=== PATIENT | female | born 1935 | race Caucasian/White ===

== ENCOUNTER → 2016-08-19 | Outpatient (CLI) | payer BC ==
[~2016-08-19] MED LIST: CALCTAB5 PO; FLUO1CRE TOP; GEMF600T PO; GLIP-197 PO; LORA-741 PO; LOVA20TA4 PO; METF1000 PO
[2016-08-19 13:20] LABS: BLOOD UREA NITROGEN 28 mg/dl (7-18); BUN/CREATININE RATIO 25.5 (10-20); CALCIUM 9.3 mg/dl (8.5-10.1); CARBON DIOXIDE 25 mmol/L (21-32); CHLORIDE 106 mmol/L (98-107); CHOLESTEROL 168 mg/dl (0-200); GLUCOSE 138 mg/dl (70-99); POTASSIUM 4.5 mmol/L (3.5-5.1); SODIUM 141 mmol/L (136-145); TRIGLYCERIDES 157 mg/dl (0-150); VERY LOW DENSITY LIPOPROT CALC 31 mg/dl
[2016-08-19 13:24] LABS: CHOLESTEROL/HDL RATIO 3.6; HDL CHOLESTEROL 47 mg/dl
[2016-08-19 13:56] LABS: ESTIMATED AVERAGE GLUCOSE 163 mg/dl; HA1C FLAG Normal (Normal)
== END | disposition home or self-care (01) ==
LOC: C.LABSPEC 12:26
PROVIDERS: ATTEND Internal Medicine
DX: E78.5 Hyperlipidemia, unspecified (principal); I10 Essential (primary) hypertension; E11.65 Type 2 diabetes mellitus with hyperglycemia

== ENCOUNTER → 2016-08-27 | Outpatient (CLI) | payer BC | END | disposition home or self-care (01) | LOC: C.LABSPEC 12:15 | PROVIDERS: ATTEND Internal Medicine | DX: Z12.11 Encounter for screening for malignant neoplasm of colon (principal) ==

== ENCOUNTER → 2016-11-16 | Outpatient (CLI) | payer BC ==
--- NOTE | 2016-11-17 08:28 | MAMMOGRAPHY REPORT ---
BILATERAL DIGITAL SCREENING MAMMOGRAM WITH CAD: 11/16/2016 CLINICAL HISTORY: Routine screening. Patient has no complaints. TECHNIQUE: Bilateral CC and MLO views were obtained. Current study was also evaluated with a Comput er Aided Detection (CAD) system. COMPARISON: Comparison is made to exams dated: 11/14/2015 mammogram, 11/12/2014 mammogram, 11/09/2013 mammogram, 11/08/2012 mammogram, 11/08/2011 mammogram, and 11/05/2009 mammogram - [facility]. BREAST COMPOSITION: The tissue of both breasts is almost entirely fatty. FINDINGS: There are minimal vascular calcifications and benign-appearing microcalcifications in the breasts. No suspicious mass, architectural distortion or cluster of suspicious microcalcifications is seen. IMPRESSION: ACR BI-RADS CATEGORY 1: NEGATIVE There is no mammographic evidence of malignancy. A 1 year screening mammogram is recommended. The p atient will receive written notification of the results. Approximately 10% of breast cancers are not detected with mammography. A negative mammographic repor t should not delay biopsy if a clinically suggestive mass is present. Marielle Douglas M.D. ay/:11/16/2016 16:22:17 Valet Service Attendant: Zaida MYRICK(Brian)(Benjamin), [facility] letter sent: Normal 1/2 BI-RADS Code: ACR BI-RADS Category 1: Negative
== END | disposition home or self-care (01) ==
LOC: C.MAMM 11:08
PROVIDERS: ATTEND Internal Medicine
DX: Z12.31 Encounter for screening mammogram for malignant neoplasm of breast (principal)

== ENCOUNTER → 2016-12-20 | Outpatient (CLI) | payer BC ==
[2016-12-20 13:30] LABS: ESTIMATED AVERAGE GLUCOSE 166 mg/dl; HA1C FLAG Normal (Normal)
[2016-12-20 13:34] LABS: BLOOD UREA NITROGEN 32 mg/dl (7-18); BUN/CREATININE RATIO 28.8 (10-20); CALCIUM 9.2 mg/dl (8.5-10.1); CARBON DIOXIDE 26 mmol/L (21-32); CHLORIDE 106 mmol/L (98-107); GLUCOSE 148 mg/dl (70-99); POTASSIUM 4.4 mmol/L (3.5-5.1); SODIUM 142 mmol/L (136-145)
[2016-12-20 13:50] LABS: ALB/GLOB RATIO 1.1 (0.9-2); ALKALINE PHOSPHATASE 78 U/L (45-117); ALT/SGPT 23 U/L (12-78); AST/SGOT 16 U/L (15-37); CHOLESTEROL 150 mg/dl (0-200); CHOLESTEROL/HDL RATIO 3.9; HDL CHOLESTEROL 38 mg/dl; TRIGLYCERIDES 218 mg/dl (0-150); VERY LOW DENSITY LIPOPROT CALC 44 mg/dl
== END | disposition home or self-care (01) ==
LOC: C.LABSPEC 12:26
PROVIDERS: ATTEND Internal Medicine
DX: E78.5 Hyperlipidemia, unspecified (principal); E11.9 Type 2 diabetes mellitus without complications

== ENCOUNTER → 2017-04-21 | Outpatient (CLI) | payer BC ==
[2017-04-21 13:59] LABS: BLOOD UREA NITROGEN 28 mg/dl (7-18); BUN/CREATININE RATIO 27.6 (10-20); CALCIUM 9.2 mg/dl (8.5-10.1); CARBON DIOXIDE 25 mmol/L (21-32); CHLORIDE 104 mmol/L (98-107); CHOLESTEROL 137 mg/dl (0-200); GLUCOSE 168 mg/dl (70-99); POTASSIUM 4.5 mmol/L (3.5-5.1); SODIUM 137 mmol/L (136-145); TRIGLYCERIDES 191 mg/dl (0-150); VERY LOW DENSITY LIPOPROT CALC 38 mg/dl
[2017-04-21 14:03] LABS: CHOLESTEROL/HDL RATIO 3.5; HDL CHOLESTEROL 39 mg/dl
[2017-04-21 14:13] LABS: RATIO 88.2 mcg/mg (0-30.0)
== END | disposition home or self-care (01) ==
LOC: C.LABSPEC 12:12
PROVIDERS: ATTEND Internal Medicine
DX: E66.09 Other obesity due to excess calories (principal); E78.5 Hyperlipidemia, unspecified; E11.65 Type 2 diabetes mellitus with hyperglycemia

== ENCOUNTER → 2017-05-29 | Outpatient (CLI) | payer BC ==
--- NOTE | 2017-05-29 14:27 | DIAGNOSTIC IMAGING REPORT ---
SINUSES MIN 3 VIEWS ROUTINE HISTORY: 82 years-old Female FACIAL PAIN acute facial pain without reported trauma COMPARISON: Brain MR 05/26/2015 TECHNIQUE: 3 views of the paranasal sinuses FINDINGS: Degenerative changes are seen within the cervical spine. No acute facial bone fracture or dislocation identified. Mastoid air cells and imaged paranasal sinuses appear generally symmetrically aerated. Orbits appear intact. No opaque foreign body. IMPRESSION: No facial bone fracture or dislocation identified. The above report was generated using voice recognition software. It may contain grammatical, syntax or spelling errors. Electronically signed by: Luis Hernandez M.D. 05/29/2017 2:25 PM Dictated Date/Time: 05/29/2017 2:24 PM
== END | disposition home or self-care (01) ==
LOC: C.RAD 13:59
PROVIDERS: ATTEND Internal Medicine
DX: J34.89 Other specified disorders of nose and nasal sinuses (principal)

== ENCOUNTER → 2017-08-22 | Outpatient (CLI) | payer BC ==
[2017-08-22 13:09] LABS: HEMOGLOBIN A1C 7.2 % (4.5-5.6)
[2017-08-22 14:10] LABS: BLOOD UREA NITROGEN 31 mg/dl (7-18); CALCIUM 9.1 mg/dl (8.5-10.1); CARBON DIOXIDE 25 mmol/L (21-32); CREATININE 1.16 mg/dl (0.60-1.20); GLUCOSE 172 mg/dl (70-99); POTASSIUM 4.5 mmol/L (3.5-5.1); SODIUM 135 mmol/L (136-145)
[2017-08-22 14:13] LABS: CHOLESTEROL 152 mg/dl (0-200); LDL CHOLESTEROL (DIRECT) 94 mg/dl
== END | disposition home or self-care (01) ==
LOC: C.LABSPEC 12:21
PROVIDERS: ATTEND Internal Medicine
DX: Z00.01 Encounter for general adult medical examination with abnormal findings (principal); E78.5 Hyperlipidemia, unspecified; E11.65 Type 2 diabetes mellitus with hyperglycemia

== ENCOUNTER → 2017-11-17 | Outpatient (CLI) | payer BC ==
--- NOTE | 2017-11-18 14:19 | MAMMOGRAPHY REPORT ---
BILATERAL DIGITAL SCREENING MAMMOGRAM TOMOSYNTHESIS WITH CAD: 11/17/2017 CLINICAL HISTORY: Routine screening. Patient has no complaints. TECHNIQUE: Breast tomosynthesis in addition to standard 2D mammography was performed. Current study was also evaluated with a Computer Aided Detection (CAD) system. COMPARISON: Comparison is made to exams dated: 11/16/2016 mammogram, 11/14/2015 mammogram, 11/12/2014 ma mmogram, 11/09/2013 mammogram, 11/08/2012 mammogram, and 11/08/2011 mammogram - [facility]ter. BREAST COMPOSITION: The tissue of both breasts is almost entirely fatty. FINDINGS: No suspicious masses, calcifications, or areas of architectural distortion are noted in ei ther breast. There has been no significant interval change compared to prior exams. IMPRESSION: ACR BI-RADS CATEGORY 1: NEGATIVE There is no mammographic evidence of malignancy. A 1 year screening mammogram is recommended. The pa tient will receive written notification of the results. Approximately 10% of breast cancers are not detected with mammography. A negative mammographic report should not delay biopsy if a clinically suggestive mass is present. Urszula Alonso M.D. ah/:11/17/2017 13:18:14 Home Manager: Angelique MYRICK(Brian)(M), [facility] letter sent: Normal 1/2 BI-RADS Code: ACR BI-RADS Category 1: Negative
== END | disposition home or self-care (01) ==
LOC: C.MAMM 11:22
PROVIDERS: ATTEND Internal Medicine
DX: Z12.31 Encounter for screening mammogram for malignant neoplasm of breast (principal)

== ENCOUNTER → 2018-02-15 | Outpatient (CLI) | payer BC | END | disposition home or self-care (01) | LOC: C.LABSPEC 13:45 | PROVIDERS: ATTEND Internal Medicine | DX: N39.0 Urinary tract infection, site not specified (principal) ==

== ENCOUNTER 2022-01-18 11:34 | Inpatient (IN) ==
[2022-01-18] MEDS ORDERED: ALBUT/IPRATROP 3MG/0.5MG NEB 3 ML VIAL INH STA (12:28)
[2022-01-18] MEDS ORDERED: SODIUM CHLORIDE 0.9% 1000ML 1,000 ML IV ONE (12:28)
--- NOTE | 2022-01-18 12:33 | Emergency Department Note ---
Impression & Plan SOB (shortness of breath), Pneumonia, Tachypnea, Leukocytosis ED Provider Note NAME: TILA GARCIA AGE: 86 SEX: F : 1935 ARRIVES VIA: Ambulance INFORMANT: [Patient] ED PROVIDER(S): [Karl Bourne MD] CHIEF COMPLAINT: Short of breath HISTORY OF PRESENT ILLNESS: The patient is an 86-year-old female who has had a week of symptoms. She has a cough, low-grade fever and dyspnea. She feels worse with exertion. She has been quite tired and fatigued. No vomiting or diarrhea. No sore throat. She has not had abdominal pain. She has had some central chest pain with coughing. She took an at home COVID test that was negative. She went to [facility] today and her COVID test was negative. She was sent to the ER for further work-up. Of note, the patient did start a Z-Andres 3 days ago, this has not helped. She has no history of lung disease, she states that she is diabetic and she has noticed that her sugars have been in the 300 range lately. REVIEW OF SYSTEMS: See HPI for pertinent positives and negatives. A total of ten systems were reviewed and were otherwise negative. PMHx/PSHx: See Below SOCIAL HISTORY: See Below. PHYSICAL EXAM: GENERAL: Patient is in mild distress, seems short of breath. HEENT: No acute trauma, normocephalic atraumatic, mucous membranes moist, no nasal congestion, no scleral icterus. NECK: No stridor, no adenopathy, no meningismus, trachea is midline. LUNGS: Dry cough noted, scattered wheezes, increased respiratory rate, mild respiratory distress noted. HEART: Without murmurs gallops or rubs, regular rate and rhythm. ABDOMEN: Soft, nontender, bowel sounds positive, no peritonitis. EXTREMITIES: No cyanosis or edema, full range of motion of all the joints without pain or difficulty, no signs for acute trauma. NEUROLOGIC: Oriented x 3, no acute motor or sensory deficits, no focal weakness. SKIN: No rash, no jaundice, no diaphoresis. DIFFERENTIAL DIAGNOSIS: Reactive airway disease, pneumonia, COVID-19, influenza, pneumothorax, COPD, CHF, infection, cardiac ischemia, pulmonary embolism, bronchitis, musculoskeletal, gastrointestinal, as well as other pathologies. EMERGENCY DEPARTMENT COURSE/PROCEDURES: ECG: Indication was shortness of breath. The ECG shows a normal sinus rhythm with a rate of 88. There is no ST elevation, no PVCs. The QTc is 450. Continuous Cardiac Monitoring: An order was placed for continuous cardiac monitoring. The monitor shows a rate of 86 with normal sinus rhythm. MEDICAL DECISION MAKING: There is a slight leukocytosis, this could be consistent with infection. There is a normal hemoglobin and platelet count. No coagulopathy. No renal failure. Lactic acid level was elevated consistent with potential infection/sepsis. There was no worrisome liver enzyme elevation. Procalcitonin level was not elevated. ECG showed a normal sinus rhythm, no obvious ischemia. Cardiac enzyme testing x1 was elevated. This elevation could be consistent with mismat ch or potentially, cardiac injury. Respiratory bio fire testing was completely negative. Chest film showed potential patchy pneumonia. No pneumothorax or CHF. Chest CT did not show PE, multifocal patchy pneumonia was seen. The patient appeared short of breath on my evaluation. She was tachypneic. She received IV saline, 1.5 L. She was given IV doxycycline, IV ceftriaxone, a DuoNeb. The patient does not feel much better with the above treatment. She persists with shortness of breath and tachypnea. She is not hypoxic though. The patient has had symptoms for over a week. She has already been on antibiotics for 3 days. She is tachypneic, she has a leukocytosis, she has an elevated lactic acid with a patchy pneumonia on CT, I do think a hospital stay is warranted. I spoke with the patient and bilingual case manager. The on-call hospitalist was consulted. Past Med/Surg History Medical History Diabetes Diabetic neuropathy Dyslipidemia Panic disorder Surgical History History of cholecystectomy Family History (Updated 01/18/22 @ 17:47 by Josie Pena PA-C) Other Family history non-contributory Social History Smoking Status: Never smoker Hx Alcohol Use: No Hx Substance Use: No Preferred Language: Setswana Communication Ability: Effective Vehicle Window Tinter Required: No Beliefs That Will Affect Care: None Current Living Situation: Alone Other Information That Helps Us Care for You: No Feels Safe at Home: Yes Safety Concerns: Feels Safe At This Time Assistive Devices: Cane and Walker Allergies Allergies Allergy/AdvReac Type Severity Reaction Status Date / Time Penicillins Allergy Severe HIVES Verified 01/18/22 15:09 aspirin Allergy Intermediate RASH Verified 01/18/22 15:09 Sulfa (Sulfonamide Allergy Intermediate RASH Verified 01/18/22 15:09 Antibiotics) Home Meds Home Medications Medication Instructions Recorded Confirmed insulin aspar prot-insulin aspart See Rx Instructions .ROUTE .COMPLEX 12/21/21 01/18/22 100 unit/mL (70-30) subcutaneous pen (Novolog Mix 70-30FlexPen U-100) losartan 25 mg tablet 12.5 mg PO DAILY tab 12/21/21 01/18/22 cyanocobalamin (vitamin B-12) 1,000 mcg PO DAILY 01/18/22 01/18/22 1,000 mcg tablet (Vitamin B-12) Previous Rx's Medication Instructions Recorded gemfibrozil 600 mg tablet (Lopid) 600 mg PO BID #60 tab 12/21/21 lorazepam 0.5 mg tablet (Ativan) 0.5 mg PO DAILY PRN #30 tab 12/21/21 lovastatin 20 mg tablet 20 mg PO QPM #30 tab 12/21/21 metformin 1,000 mg tablet 1,000 mg PO BID #60 tab 12/21/21 Results & Data (ED) Vital Signs Vital Signs - 24 hr 01/18/22 11:55 01/18/22 12:00 01/18/22 12:55 Temperature 37.5 C Temperature Source Oral Pulse Rate 87 Pulse Rate [Right Finger] 86 Pulse Rhythm Regular Pulse Rhythm [Right Finger] Regular Pulse Strength Normal Pulse Strength [Right Finger] Normal Respiratory Rate 20 20 Respiratory Effort / Characteristics Non-Labored Spontaneous Spontaneous Respiratory Depth Normal Normal Respiratory Pattern Regular Regular Blood Pressure 122/86 Blood Pressure [Left Arm] 122/86 Blood Pressure Mean 98 Blood Pressure Mean [Left Arm] 98 Blood Pressure Position Lying Blood Pressure Position [Left Arm] Lying Pulse Oximetry 94 97 Oxygen Delivery Method Room Air Room Air Room Air Sepsis Recent Fever Within 48 Hours No Sepsis New/Unexplained Change in Mental Status No Sepsis Action Taken by Nursing No Action Required 01/18/22 14:00 Temperature Temperature Source Pulse Rate Pulse Rate [Right Finger] 85 Pulse Rhythm Pulse Rhythm [Right Finger] Regular Pulse Strength Pulse Strength [Right Finger] Normal Respiratory Rate 20 Respiratory Effort / Characteristics Spontaneous Respiratory Depth Normal Respiratory Pattern Regular Blood Pressure Blood Pressure [Left Arm] 132/69 Blood Pressure Mean Blood Pressure Mean [Left Arm] 90 Blood Pressure Position Blood Pressure Position [Left Arm] Lying Pulse Oximetry 97 Oxygen Delivery Method Room Air Sepsis Recent Fever Within 48 Hours Sepsis New/Unexplained Change in Mental Status Sepsis Action Taken by Jail Medications Current Medication List: was personally reviewed by me Laboratory Data Attestation: I reviewed the patient's lab results. Result diagrams: 01/18/22 12:50 01/18/22 12:50 Lab Results 01/18/22 01/18/22 01/18/22 Range/Units 12:50 12:50 12:50 WBC 11.45 H (4.8-10.8) K/uL RBC 4.62 (4.2-5.4) M/uL Hgb 13.4 (12.0-16.0) g/dL Hct 40.2 (37-47) % MCV 87.0 (80-100) fL MCH 29.0 (25-34) pg MCHC 33.3 (32-36) g/dL RDW Std Deviation 45.1 (36.4-46.3) fL RDW Coeff of Arsh 14.2 (11.5-14.5) % Plt Count 385 (130-400) K/uL MPV 10.3 (7.4-10.4) fL Immature Gran % (Auto) 0.3 % Neut % (Auto) 76.7 % Lymph % (Auto) 15.0 % Metcalfe % (Auto) 6.6 % Eos % (Auto) 1.1 % Baso % (Auto) 0.3 % Neut # (Auto) 8.77 H (1.4-6.5) K/uL Lymph # (Auto) 1.72 (1.2-3.4) K/uL Metcalfe # (Auto) 0.76 H (0.11-0.59) K/uL Eos # (Auto) 0.13 (0-0.5) K/uL Baso # (Auto) 0.04 (0-0.2) K/uL Immature Gran # (Auto) 0.03 H (0.00-0.02) K/uL PT 11.1 (9.0-12.0) Seconds INR 1.0 (0.9-1.1) APTT 26.1 (21.0-31.0) Seconds PTT Ratio 0.9 Sodium (136-145) mmol/L Potassium (3.5-5.1) mmol/L Chloride (98-107) mmol/L Carbon Dioxide (21-32) mmol/L Anion Gap (3-11) BUN (6-23) mg/dl Creatinine (0.6-1.2) mg/dl Est Cr Clr Drug Dosing ml/min Est GFR ( Amer) ml/min Est GFR (Non-Af Amer) ml/min BUN/Creatinine Ratio (10-20) Glucose (70-99(Fasting)) mg/dl Lactate 2.1 H* (0.4-2.0) mmol/L Calcium (8.5-10.1) mg/dl Magnesium (1.7-2.4) mg/dl Total Bilirubin (0.2-1.0) mg/dl AST (13-39) U/L ALT (7-52) U/L Alkaline Phosphatase (34-104) U/L Troponin I High Sens (0-14) pg/ml Total Protein (6.0-8.3) gm/dl Albumin (3.4-5.0) gm/dl Globulin (2.5-4.0) gm/dl Albumin/Globulin Ratio (0.9-2) Procalcitonin (0-0.5) ng/ml Adenovirus (PCR) (NotDetected) B. pertussis DNA (PCR) (NotDetected) B.parapertussis DNA PCR (NotDetected) C. pneumoniae DNA (PCR) (NotDetected) Coronavirus OC43 (PCR) (NotDetected) Coronavirus HKU1 (PCR) (NotDetected) Coronavirus 229E (PCR) (NotDetected) SARS-CoV-2 (PCR) (NotDetected) Coronavirus NL63 (PCR) (NotDetected) Human Metapneumovir PCR (NotDetected) Influenza Type A (PCR) (NotDetected) Influenza Type B (PCR) (NotDetected) M. pneumoniae (PCR) (NotDetected) Parainfluenza 1 (PCR) (NotDetected) Parainfluenza 2 (PCR) (NotDetected) Parainfluenza 3 (PCR) (NotDetected) Parainfluenza 4 (PCR) (NotDetected) RSV (PCR) (NotDetected) Entero/Rhino (PCR) (NotDetected) 01/18/22 01/18/22 01/18/22 Range/Units 12:50 12:50 12:50 WBC (4.8-10.8) K/uL RBC (4.2-5.4) M/uL Hgb (12.0-16.0) g/dL Hct (37-47) % MCV (80-100) fL MCH (25-34) pg MCHC (32-36) g/dL RDW Std Deviation (36.4-46.3) fL RDW Coeff of Arsh (11.5-14.5) % Plt Count (130-400) K/uL MPV (7.4-10.4) fL Immature Gran % (Auto) % Neut % (Auto) % Lymph % (Auto) % Metcalfe % (Auto) % Eos % (Auto) % Baso % (Auto) % Neut # (Auto) (1.4-6.5) K/uL Lymph # (Auto) (1.2-3.4) K/uL Metcalfe # (Auto) (0.11-0.59) K/uL Eos # (Auto) (0-0.5) K/uL Baso # (Auto) (0-0.2) K/uL Immature Gran # (Auto) (0.00-0.02) K/uL PT (9.0-12.0) Seconds INR (0.9-1.1) APTT (21.0-31.0) Seconds PTT Ratio Sodium 137 (136-145) mmol/L Potassium 4.0 (3.5-5.1) mmol/L Chloride 100 (98-107) mmol/L Carbon Dioxide 23 (21-32) mmol/L Anion Gap 14 H (3-11) BUN 24 H (6-23) mg/dl Creatinine 0.91 (0.6-1.2) mg/dl Est Cr Clr Drug Dosing 50.5 ml/min Est GFR ( Amer) 67.1 ml/min Est GFR (Non-Af Amer) 57.9 ml/min BUN/Creatinine Ratio 26.4 H (10-20) Glucose 158 H (70-99(Fasting)) mg/dl Lactate (0.4-2.0) mmol/L Calcium 10.1 (8.5-10.1) mg/dl Magnesium 1.9 (1.7-2.4) mg/dl Total Bilirubin 0.5 (0.2-1.0) mg/dl AST 11 L (13-39) U/L ALT 9 (7-52) U/L Alkaline Phosphatase 89 (34-104) U/L Troponin I High Sens 46.7 H (0-14) pg/ml Total Protein 8.2 (6.0-8.3) gm/dl Albumin 4.2 (3.4-5.0) gm/dl Globulin 4.0 (2.5-4.0) gm/dl Albumin/Globulin Ratio 1.1 (0.9-2) Procalcitonin 0.27 (0-0.5) ng/ml Adenovirus (PCR) Not Detected (NotDetected) B. pertussis DNA (PCR) Not Detected (NotDetected) B.parapertussis DNA PCR Not Detected (NotDetected) C. pneumoniae DNA (PCR) Not Detected (NotDetected) Coronavirus OC43 (PCR) Not Detected (NotDetected) Coronavirus HKU1 (PCR) Not Detected (NotDetected) Coronavirus 229E (PCR) Not Detected (NotDetected) SARS-CoV-2 (PCR) Not Detected (NotDetected) Coronavirus NL63 (PCR) Not Detected (NotDetected) Human Metapneumovir PCR Not Detected (NotDetected) Influenza Type A (PCR) Not Detected (NotDetected) Influenza Type B (PCR) Not Detected (NotDetected) M. pneumoniae (PCR) Not Detected (NotDetected) Parainfluenza 1 (PCR) Not Detected (NotDetected) Parainfluenza 2 (PCR) Not Detected (NotDetected) Parainfluenza 3 (PCR) Not Detected (NotDetected) Parainfluenza 4 (PCR) Not Detected (NotDetected) RSV (PCR) Not Detected (NotDetected) Entero/Rhino (PCR) Not Detected (NotDetected) 01/18/22 Range/Units 14:30 WBC (4.8-10.8) K/uL RBC (4.2-5.4) M/uL Hgb (12.0-16.0) g/dL Hct (37-47) % MCV (80-100) fL MCH (25-34) pg MCHC (32-36) g/dL RDW Std Deviation (36.4-46.3) fL RDW Coeff of Arsh (11.5-14.5) % Plt Count (130-400) K/uL MPV (7.4-10.4) fL Immature Gran % (Auto) % Neut % (Auto) % Lymph % (Auto) % Metcalfe % (Auto) % Eos % (Auto) % Baso % (Auto) % Neut # (Auto) (1.4-6.5) K/uL Lymph # (Auto) (1.2-3.4) K/uL Metcalfe # (Auto) (0.11-0.59) K/uL Eos # (Auto) (0-0.5) K/uL Baso # (Auto) (0-0.2) K/uL Immature Gran # (Auto) (0.00-0.02) K/uL PT (9.0-12.0) Seconds INR (0.9-1.1) APTT (21.0-31.0) Seconds PTT Ratio Sodium (136-145) mmol/L Potassium (3.5-5.1) mmol/L Chloride (98-107) mmol/L Carbon Dioxide (21-32) mmol/L Anion Gap (3-11) BUN (6-23) mg/dl Creatinine (0.6-1.2) mg/dl Est Cr Clr Drug Dosing ml/min Est GFR ( Amer) ml/min Est GFR (Non-Af Amer) ml/min BUN/Creatinine Ratio (10-20) Glucose (70-99(Fasting)) mg/dl Lactate 3.1 H* (0.4-2.0) mmol/L Calcium (8.5-10.1) mg/dl Magnesium (1.7-2.4) mg/dl Total Bilirubin (0.2-1.0) mg/dl AST (13-39) U/L ALT (7-52) U/L Alkaline Phosphatase (34-104) U/L Troponin I High Sens (0-14) pg/ml Total Protein (6.0-8.3) gm/dl Albumin (3.4-5.0) gm/dl Globulin (2.5-4.0) gm/dl Albumin/Globulin Ratio (0.9-2) Procalcitonin (0-0.5) ng/ml Adenovirus (PCR) (NotDetected) B. pertussis DNA (PCR) (NotDetected) B.parapertussis DNA PCR (NotDetected) C. pneumoniae DNA (PCR) (NotDetected) Coronavirus OC43 (PCR) (NotDetected) Coronavirus HKU1 (PCR) (NotDetected) Coronavirus 229E (PCR) (NotDetected) SARS-CoV-2 (PCR) (NotDetected) Coronavirus NL63 (PCR) (NotDetected) Human Metapneumovir PCR (NotDetected) Influenza Type A (PCR) (NotDetected) Influenza Type B (PCR) (NotDetected) M. pneumoniae (PCR) (NotDetected) Parainfluenza 1 (PCR) (NotDetected) Parainfluenza 2 (PCR) (NotDetected) Parainfluenza 3 (PCR) (NotDetected) Parainfluenza 4 (PCR) (NotDetected) RSV (PCR) (NotDetected) Entero/Rhino (PCR) (NotDetected) Administered Medications Discontinued Medications Albuterol (Albut/Ipratrop 3mg/0.5mg Neb 3 Ml Vial) 3 ml INH NOW STA Stop: 01/18/22 12:29 Last Admin: 01/18/22 13:28 Dose: 3 ml Documented by: [id number] Sodium Chloride (Nss 1000ml) 1,000 mls @ 999 mls/hr IV .Q1H1M ONE Stop: 01/18/22 13:28 Last Infusion: 01/18/22 14:25 Dose: 0 mls/hr Documented by: [id number] Admin: 01/18/22 13:28 Dose: 999 mls/hr Documented by: [id number] Ceftriaxone Sodium (Rocephin) 2,000 mg in 70 mls @ 140 mls/hr IV NOW STA Stop: 01/18/22 13:26 Last Infusion: 01/18/22 14:24 Dose: 0 mls/hr Documented by: [id number] Admin: 01/18/22 13:28 Dose: 140 mls/hr Documented by: [id number] Doxycycline Hyclate 100 mg/ (Dextrose) 110 mls @ 50 mls/hr IV NOW STA Stop: 01/18/22 17:33 Last Admin: 01/18/22 15:59 Dose: 50 mls/hr Documented by: [id number] Sodium Chloride (Nss 1000ml) 500 mls @ 999 mls/hr IV .Q31M ONE Stop: 01/18/22 16:00 Last Infusion: 01/18/22 17:07 Dose: 0 mls/hr Documented by: [id number] Admin: 01/18/22 16:00 Dose: 999 mls/hr Documented by: [id number] Ioversol (Optiray 320 125ml) 90 ml IV ONCE ONE Stop: 01/18/22 14:25 Last Admin: 01/18/22 14:25 Dose: 90 ml Documented by: [id number] Imaging Data Radiologist's Impression: Chest X-Ray 01/18/22 12:29 XR chest 1V portable HISTORY: 86 years-old Female SOB acute shortness of breath COMPARISON: None TECHNIQUE: Portable AP view of the chest FINDINGS: The cardiac silhouette is normal in size. Mild bilateral hilar prominence. No pneumothorax or large pleural effusion. Mild interstitial coarsening of the lung bases. Ill-defined 3.2 cm airspace opacity of the lateral right mid to upper lung abutting the fissure. Possible additional ill-defined right upper lobe airspace opacity. Degenerative changes of the shoulders and spine. IMPRESSION: 1. Right mid upper lung ill-defined opacities may represent developing pneumonia versus pulmonary nodules/lesions. Correlation with the ordered CTA chest study of same day recommended. 2. Mild interstitial coarsening of the lung bases, possibly chronic. ACT 112: Negative or not required by law. The above report was generated using voice recognition software. It may contain grammatical, syntax or spelling errors. Electronically signed by: Jasiel Hernandez M.D. 01/18/2022 12:52 PM Chest CTA 01/18/22 12:30 CT angio chest PE protocol CT DOSE: 403.99 mGy.cm HISTORY: 86 years-old Female with PE. Acute shortness of breath with cough and chest pain TECHNIQUE: Multiple CTA images of the chest were obtained after the intravenous administration of 90 ml Optiray. Coronal and sagittal MIPS were obtained from the axial data set and were submitted for review. All measurements were obtained according to NASCET criteria. A dose lowering technique was utilized adhering to the principles of ALARA. COMPARISON: Chest radiograph of same day FINDINGS: CTA: Mild cardiomegaly. There is no pericardial effusion. No thoracic aortic aneurysm or dissection. There is patency of the imaged great vessels. Unremarkable pulmonary artery. CT CHEST: Tiny subcentimeter hypodense thyroid nodules. Nonspecific mediastinal and hilar lymph nodes measure up to 9 mm. There is no pneumothorax, pleural effusion or overt pulmonary edema. Bronchial wall thickening is noted with bibasilar mucous plugging. Patchy multilobar bilateral groundglass and consolidative opacities. This includes a 1.6 cm area of nodular consolidation within the basal left lower lobe, 2.9 cm consolidation within the medial segment right middle lobe in a subpleural 4 cm consolidation within the right upper lobe. No acute process of the imaged upper abdomen. Probable cyst of the superior pole left kidney, 1.1 m. Hepatic steatosis. Mild right hemidiaphragmatic elevation. Unremarkable soft tissues. Degenerative changes of the shoulders and spine. IMPRESSION: 1. No pulmonary emboli identified. 2. Patchy multilobar bilateral groundglass and consolidative opacities are suggestive of multifocal pneumonia. Follow-up imaging after treatment course recommended to document resolution. 3. Bronchial wall thickening suggestive of bronchitis with mucous plugging. 4. Borderline enlarged mediastinal and hilar lymph nodes are likely reactive. ACT 112: Negative or not required by law. The above report was generated using voice recognition software. It may contain grammatical, syntax or spelling errors. Electronically signed by: Jasiel Hernandez M.D. 01/18/2022 3:14 PM Discharge Plan Visit Data Chief Complaint: Shortness of Breath/Dyspnea Stated Complaint: SOB, FEVER, NON PRODUCTIVE COUGH ED Provider: Karl Bourne Discharge Problem: SOB (shortness of breath), Pneumonia, Tachypnea, Leukocytosis Patient Disposition: Admitted As Inpatient Condition: Fair Discharge Instructions Interventions: ED Discharge Assessment Last Done: 01/18/22 17:38
--- NOTE | 2022-01-18 12:54 | XRay Report ---
XR chest 1V portable HISTORY: 86 years-old Female SOB acute shortness of breath COMPARISON: None TECHNIQUE: Portable AP view of the chest FINDINGS: The cardiac silhouette is normal in size. Mild bilateral hilar prominence. No pneumothorax or large p leural effusion. Mild interstitial coarsening of the lung bases. Ill-defined 3.2 cm airspace opacity of the lateral right mid to upper lung abutting the fissure. Possible additional ill-defined right up per lobe airspace opacity. Degenerative changes of the shoulders and spine. IMPRESSION: 1. Right mid upper lung ill-defined opacities may represent developing pneumonia versus pulmonary nod ules/lesions. Correlation with the ordered CTA chest study of same day recommended. 2. Mild interstitial coarsening of the lung bases, possibly chronic. ACT 112: Negative or not required by law. The above report was generated using voice recognition software. It may contain grammatical, syntax o r spelling errors. Electronically signed by: Jasiel Hernandez M.D. 01/18/2022 12:52 PM
[2022-01-18] MEDS ORDERED: cefTRIAXone SODIUM 2,000 MG/70 ML BAG IV STA (12:57)
[2022-01-18 13:13] LABS: Basophils # (auto) 0.04 K/uL (0-0.2); Basophils % (auto) 0.3 %; Eosinophils # (auto) 0.13 K/uL (0-0.5); Eosinophils % (auto) 1.1 %; Hematocrit (blood only) 40.2 % (37-47); Hemoglobin 13.4 g/dL (12.0-16.0); Immature Granulocytes # (auto) 0.03 K/uL (0.00-0.02); Immature Granulocytes % (auto) 0.3 %; Lymphocytes # (auto) 1.72 K/uL (1.2-3.4); Mean Corpuscular Hgb Conc 33.3 g/dL (32-36); Mean Platelet Volume 10.3 fL (7.4-10.4); Monocytes # (auto) 0.76 K/uL (0.11-0.59); Monocytes % (auto) 6.6 %; Neutrophils # (auto) 8.77 K/uL (1.4-6.5); Neutrophils % (auto) 76.7 %; Platelet Count 385 K/uL (130-400); RDW Coefficient of Variation 14.2 % (11.5-14.5); RDW Standard Deviation 45.1 fL (36.4-46.3); Red Blood Count 4.62 M/uL (4.2-5.4); White Blood Count 11.45 K/uL (4.8-10.8)
[2022-01-18 13:28] LABS: Albumin Globulin Ratio 1.1 (0.9-2); Albumin Level 4.2 gm/dl (3.4-5.0); BUN Creatinine Ratio 26.4 (10-20); Bilirubin,Total 0.5 mg/dl (0.2-1.0); Calcium 10.1 mg/dl (8.5-10.1); Creatinine Clr Calc Pharmacy 50.5 ml/min; Est GFR (African American) 67.1 ml/min; Est GFR (Non-African American) 57.9 ml/min; Magnesium 1.9 mg/dl (1.7-2.4); Total Protein 8.2 gm/dl (6.0-8.3)
[2022-01-18 13:31] LABS: Troponin I High Sensitivity 46.7 pg/ml (0-14)
[2022-01-18 13:37] LABS: Partial Thromboplastin Ratio 0.9; Partial Thromboplastin Time 26.1 Seconds (21.0-31.0); Prothrombin Time 11.1 Seconds (9.0-12.0)
[2022-01-18 14:07] LABS: Adenovirus PCR Not Detected (NotDetected); Bordetella parapertussis PCR Not Detected (NotDetected); Bordetella pertussis PCR Not Detected (NotDetected); Chlamydia pneumoniae PCR Not Detected (NotDetected); Coronavirus 229E PCR Not Detected (NotDetected); Coronavirus CoV-2 (COVID19)PCR Not Detected (NotDetected); Coronavirus HKU1 PCR Not Detected (NotDetected); Coronavirus NL63 PCR Not Detected (NotDetected); Coronavirus OC43PCR Not Detected (NotDetected); Human Metapneumovirus PCR Not Detected (NotDetected); Influenza A PCR Not Detected (NotDetected); Influenza B PCR Not Detected (NotDetected); Mycoplasma pneumoniae PCR Not Detected (NotDetected); Parainfluenza Virus 1 PCR Not Detected (NotDetected); Parainfluenza Virus 2 PCR Not Detected (NotDetected); Parainfluenza Virus 3 PCR Not Detected (NotDetected); Parainfluenza Virus 4 PCR Not Detected (NotDetected); Respiratory Syncytial VirusPCR Not Detected (NotDetected); Rhinovirus/Enterovirus PCR Not Detected (NotDetected)
[2022-01-18] MEDS ORDERED: OPTIRAY 320 125ml IV ONE (14:24)
--- NOTE | 2022-01-18 15:16 | CT Scan Report ---
CT angio chest PE protocol CT DOSE: 403.99 mGy.cm HISTORY: 86 years-old Female with PE. Acute shortness of breath with cough and chest pain TECHNIQUE: Multiple CTA images of the chest were obtained after the intravenous administration of 90 ml Optiray. Coronal and sagittal MIPS were obtained from the axial data set and were submitted for Qnovow. All measurements were obtained according to NASCET criteria. A dose lowering technique was ut ilized adhering to the principles of ALARA. COMPARISON: Chest radiograph of same day FINDINGS: CTA: Mild cardiomegaly. There is no pericardial effusion. No thoracic aortic aneurysm or dissection. There is patency of the imaged great vessels. Unremarkable pulmonary artery. CT CHEST: Tiny subcentimeter hypodense thyroid nodules. Nonspecific mediastinal and hilar lymph nodes measure u p to 9 mm. There is no pneumothorax, pleural effusion or overt pulmonary edema. Bronchial wall thicke bereket is noted with bibasilar mucous plugging. Patchy multilobar bilateral groundglass and consolidati ve opacities. This includes a 1.6 cm area of nodular consolidation within the basal left lower lobe, 2.9 cm consolidation within the medial segment right middle lobe in a subpleural 4 cm consolidation w ithin the right upper lobe. No acute process of the imaged upper abdomen. Probable cyst of the superior pole left kidney, 1.1 m. Hepatic steatosis. Mild right hemidiaphragmatic elevation. Unremarkable soft tissues. Degenerative ch anges of the shoulders and spine. IMPRESSION: 1. No pulmonary emboli identified. 2. Patchy multilobar bilateral groundglass and consolidative opacities are suggestive of multifocal p neumonia. Follow-up imaging after treatment course recommended to document resolution. 3. Bronchial wall thickening suggestive of bronchitis with mucous plugging. 4. Borderline enlarged mediastinal and hilar lymph nodes are likely reactive. ACT 112: Negative or not required by law. The above report was generated using voice recognition software. It may contain grammatical, syntax o r spelling errors. Electronically signed by: Jasiel Hernandez M.D. 01/18/2022 3:14 PM
[2022-01-18] MEDS ORDERED: DOXYCYCLINE HYCLATE 100 MG in DEXTROSE 5% 100 ML IV STA (15:22)
[2022-01-18] MEDS ORDERED: SODIUM CHLORIDE 0.9% 1000ML 500 ML IV ONE (15:30)
--- NOTE | 2022-01-18 16:33 | History & Physical Report ---
Date of Service January 18, 2022 Assessment & Plan (1) Pneumonia: Plan: - Day #7 of symptoms, failed outpatient treatment of Z-Andres, was started on ceftriaxone doxycycline and ED, will continue these for now. - WBC 11.45, lactate 3.1. Procalcitonin and repeat lactate pending. - Continue to follow lactate to 2 hours until <2.0, follow CBC, procalcitonin on morning labs. - Sputum and blood cultures ordered. - Supportive care with IVF, Tylenol, Mucinex. (2) Diabetes: Plan: - Hold home medications--> metformin 1000 mg twice daily and NovoLog 70/30, 55 units in the a.m. and 45 units in p.m. - Lantus 10 units twice daily with accucheks ACHS and SSI, can adjust as needed. - A1c checked in November 2021--> 7.5% (3) Elevated troponin: Plan: Mildly elevated troponin Likely myocardial demand ischemia Trend serial troponin No ischemic changes on ECG (4) Dyslipidemia: Plan: - Continue lovastatin 20 mg at night, gemfibrozil 600 mg twice daily. (5) Hypertension: Plan: - Continue losartan 12.5 mg daily. (6) Panic disorder: Plan: - Takes lorazepam 0.5 mg as needed, mostly for help falling asleep. Plan: - Admit to medicine w/ telemetry. - SCDs, Lovenox for VTE PPx. - DNR/DNI. History of Present Illness Chief Complaint: worsening shortness of breath and fevers x 7 days Primary Care Provider: Dante Garcia MD Anu Frances is an 86-year-old female with a past medical history significant for DM2 with neuropathy, dyslipidemia, hypertension, arthritis, and panic disorder who presents today for worsening shortness of breath and fatigue. 1 week ago, patient started experiencing central chest pain associated with a cough and fatigue, as well as low grade fevers. She saw her PCP, who started her on a Z-Andres for presumed bronchitis/pneumonia 3 days ago, however she is not been feeling any better, in fact feels worse. She continues to have chest pain associated with her cough, which is productive for some sputum, shortness of breath, as well as low grade fever and chills. In ED, VS are wnl and stable, however patient is tachypneic. Labs are significant for WBC 11.45 and lactate 3.1, hs trop 46.7. Respiratory biofire panel unremarkable. CXR showed right mid upper lung ill-defined opacities suspicious for pneumonia, Chest CT showed patchy multilobar bilateral groundglass and consolidative opacities suggestive of multifocal pneumonia. Allergies Allergy/AdvReac Type Severity Reaction Status Date / Time Penicillins Allergy Severe HIVES Verified 01/18/22 15:09 aspirin Allergy Intermediate RASH Verified 01/18/22 15:09 Sulfa (Sulfonamide Allergy Intermediate RASH Verified 01/18/22 15:09 Antibiotics) Home Medications Medication Instructions Recorded Confirmed Type gemfibrozil 600 mg tablet (Lopid) 600 mg PO BID #60 tab 12/21/21 01/18/22 Rx insulin aspar prot-insulin aspart See Rx Instructions .ROUTE .COMPLEX 12/21/21 01/18/22 History 100 unit/mL (70-30) subcutaneous pen (Novolog Mix 70-30FlexPen U-100) lorazepam 0.5 mg tablet (Ativan) 0.5 mg PO DAILY PRN #30 tab 12/21/21 01/18/22 Rx losartan 25 mg tablet 12.5 mg PO DAILY tab 12/21/21 01/18/22 History lovastatin 20 mg tablet 20 mg PO QPM #30 tab 12/21/21 01/18/22 Rx metformin 1,000 mg tablet 1,000 mg PO BID #60 tab 12/21/21 01/18/22 Rx cyanocobalamin (vitamin B-12) 1,000 mcg PO DAILY 01/18/22 01/18/22 History 1,000 mcg tablet (Vitamin B-12) Past Med/Surg History Medical History Diabetes Diabetic neuropathy Dyslipidemia Panic disorder Surgical History History of cholecystectomy Family History Other Family history non-contributory Social History Smoking Status: Never smoker Hx Alcohol Use: No Hx Substance Use: No Preferred Language: Latvian Communication Ability: Effective Perinatal Director Required: No Beliefs That Will Affect Care: None Current Living Situation: Alone Other Information That Helps Us Care for You: No Feels Safe at Home: Yes Safety Concerns: Feels Safe At This Time Assistive Devices: Cane and Walker Review of Systems Review of Systems: Constitutional: reports fever/chills, weakness, fatigue, and myalgias; no anorexia, night sweats Eyes: No diplopia, no worsening or blurred vision ENT: normal hearing, no trouble swallowing Respiratory: productive cough with shortness of breath with minimal activity Cardiovascular: chest pain associated with cough; no tightness or palpitations Abdomen: No pain, nausea, vomiting, diarrhea or constipation : Denies dysuria, hematuria, increased urgency/frequency, urinary retention Musculoskeletal: No joint pain, calf pain, swelling Neurologic: No weakness, numbness/tingling, or balance problems Psychiatric: No anxiety or depression Skin: No rash or itch Physical Exam Physical Exam: General: awake, alert, no apparent distress Head: Normocephalic, atraumatic ENT: PERRL, EOMI, no pharyngeal exudate, mucous membranes moist Chest: Clear to auscultation, on room air, no adventitious breath sounds Cardiac: Regular rate and rhythm, no murmur, no JVD, normal peripheral pulses, good capillary refill Abdominal: NABS x 4 quadrants, soft, nontender to palpation, no rebound, guarding or tenderness Extremities: Normal inspection, no peripheral edema or erythema, calfs nontender to palpation Psych: Normal mood and affect Neuro: AAO x 3, strength intact bilaterally and rated 5/5, no motor deficits, speech is clear, no peripheral sensory deficits Skin: no rash or erythema Results & Data Results & Data ([facility]) Vital Signs (Past 12 Hours) Vital Signs Temp Pulse Pulse Resp BP BP Pulse Ox 01/18/22 14:00 85 20 132/69 97 01/18/22 12:00 86 20 122/86 97 01/18/22 11:55 37.5 C 87 20 122/86 94 Laboratory Results Abnormal lab results 01/18/22 01/18/22 01/18/22 Range/Units 12:50 12:50 12:50 WBC 11.45 H (4.8-10.8) K/uL Neut # (Auto) 8.77 H (1.4-6.5) K/uL [place] # (Auto) 0.76 H (0.11-0.59) K/uL Immature Gran # (Auto) 0.03 H (0.00-0.02) K/uL Anion Gap 14 H (3-11) BUN 24 H (6-23) mg/dl BUN/Creatinine Ratio 26.4 H (10-20) Glucose 158 H (70-99(Fasting)) mg/dl Lactate 2.1 H* (0.4-2.0) mmol/L AST 11 L (13-39) U/L Troponin I High Sens 46.7 H (0-14) pg/ml 01/18/22 Range/Units 14:30 WBC (4.8-10.8) K/uL Neut # (Auto) (1.4-6.5) K/uL [place] # (Auto) (0.11-0.59) K/uL Immature Gran # (Auto) (0.00-0.02) K/uL Anion Gap (3-11) BUN (6-23) mg/dl BUN/Creatinine Ratio (10-20) Glucose (70-99(Fasting)) mg/dl Lactate 3.1 H* (0.4-2.0) mmol/L AST (13-39) U/L Troponin I High Sens (0-14) pg/ml Diagnostic Findings Chest X-Ray 01/18/22 12:29 XR chest 1V portable HISTORY: 86 years-old Female SOB acute shortness of breath COMPARISON: None TECHNIQUE: Portable AP view of the chest FINDINGS: The cardiac silhouette is normal in size. Mild bilateral hilar prominence. No pneumothorax or large pleural effusion. Mild interstitial coarsening of the lung bases. Ill-defined 3.2 cm airspace opacity of the lateral right mid to upper lung abutting the fissure. Possible additional ill-defined right upper lobe airspace opacity. Degenerative changes of the shoulders and spine. IMPRESSION: 1. Right mid upper lung ill-defined opacities may represent developing pneumonia versus pulmonary nodules/lesions. Correlation with the ordered CTA chest study of same day recommended. 2. Mild interstitial coarsening of the lung bases, possibly chronic. ACT 112: Negative or not required by law. The above report was generated using voice recognition software. It may contain grammatical, syntax or spelling errors. Electronically signed by: Jasiel Hernandez M.D. 01/18/2022 12:52 PM Chest CTA 01/18/22 12:30 CT angio chest PE protocol CT DOSE: 403.99 mGy.cm HISTORY: 86 years-old Female with PE. Acute shortness of breath with cough and chest pain TECHNIQUE: Multiple CTA images of the chest were obtained after the intravenous administration of 90 ml Optiray. Coronal and sagittal MIPS were obtained from the axial data set and were submitted for review. All measurements were obtained according to NASCET criteria. A dose lowering technique was utilized adhering to the principles of ALARA. COMPARISON: Chest radiograph of same day FINDINGS: CTA: Mild cardiomegaly. There is no pericardial effusion. No thoracic aortic aneurysm or dissection. There is patency of the imaged great vessels. Unremarkable pulmonary artery. CT CHEST: Tiny subcentimeter hypodense thyroid nodules. Nonspecific mediastinal and hilar lymph nodes measure up to 9 mm. There is no pneumothorax, pleural effusion or overt pulmonary edema. Bronchial wall thickening is noted with bibasilar mucous plugging. Patchy multilobar bilateral groundglass and consolidative opacities. This includes a 1.6 cm area of nodular consolidation within the basal left lower lobe, 2.9 cm consolidation within the medial segment right middle lobe in a subpleural 4 cm consolidation within the right upper lobe. No acute process of the imaged upper abdomen. Probable cyst of the superior pole left kidney, 1.1 m. Hepatic steatosis. Mild right hemidiaphragmatic elevation. Unremarkable soft tissues. Degenerative changes of the shoulders and spine. IMPRESSION: 1. No pulmonary emboli identified. 2. Patchy multilobar bilateral groundglass and consolidative opacities are suggestive of multifocal pneumonia. Follow-up imaging after treatment course recommended to document resolution. 3. Bronchial wall thickening suggestive of bronchitis with mucous plugging. 4. Borderline enlarged mediastinal and hilar lymph nodes are likely reactive. ACT 112: Negative or not required by law. The above report was generated using voice recognition software. It may contain grammatical, syntax or spelling errors. Electronically signed by: Jasiel Hernandez M.D. 01/18/2022 3:14 PM ECG Additional Comments: Normal sinus rhythm Normal ECG When compared with ECG of 28-MAY-2004 20:56, No significant change was found. Code Status & VTE Plan Code Status DNR/DNI. VTE Prophylaxis Plan VTE Prophylaxis will be ordered: Yes Supervising Physician Co-Signing Physician Notes PA Supervision Note: I personally saw and examined the patient. I verified all calderon points and agree with CALLI Pena with the following exceptions and/or additions: S-this patient is an 86-year-old female who presents with cough and low-grade fevers x7 days, failing outpatient azithromycin treatment from her PCP. Found to have multifocal pneumonia on CT of the chest. With mildly elevated WBC count, rigors when I saw her. Elevated lactate. Blood pressures high and pulse rate high. Pulse ox still fairly within normal limits. History and ROS reviewed otherwise as above O- Vitals reviewed Gen: AAOx3, NAD, having rigors HEENT: Anicteric sclerae, EOMI CV: RRR no mgr nl S1S2 Pulm: Positive crackles auscultated in right lower lung field, otherwise no wheezes or rhonchi, breathing unlabored Abd: +BS soft NT ND no masses or hernias Ext: No edema, 2+ DP pulses Skin: No rashes, warm/dry Neuro: Full strength throughout Labs, Rads, and ECG reviewed A/A-28-ohto-old female here with multifocal pneumonia, likely sepsis POA if spikes fever while here. With lactic acidosis now improving with IV fluids -Continue antibiotics, IV fluids, follow blood and sputum cultures as above Supplemental O2 as needed to keep pulse ox greater than 90% Follow CBC, BMP in the morning Follow lactate Elevated troponin-likely myocardial demand ischemia PG Care Time/CCT Total # of Minutes Spent Total Time Spent with Patient: Total time spent is greater than 50% in coordination of care (as documented) at patient's floor/unit and/or counseling patient: Coding Level of Care Code 04171 Initial Inpt Care Lvl 2 Diagnoses Pneumonia J18.9 Diabetes E11.9 Panic disorder F41.0 Dyslipidemia E78.5 Hypertension I10 Elevated troponin R77.8
[2022-01-18] MEDS ORDERED: DEXTROSE 50% 50 ML SYRINGE IV PRN (18:28)
[2022-01-18] MEDS ORDERED: ACETAMINOPHEN 325 MG TAB PO PRN (18:28)
[2022-01-18] MEDS ORDERED: NORMOSOL-R 1,000 ML IV SCH (18:28)
[2022-01-18] MEDS ORDERED: GLUCOSE 10 TAB/TUBE PO PRN (18:28)
[2022-01-18] MEDS ORDERED: GLUCOSE 40% GEL 15 GM TUBE PO PRN (18:28)
[2022-01-18] MEDS ORDERED: ONDANSETRON INJ 2 MG/ML 2 ML VIAL IV PRN (18:28)
[2022-01-18] MEDS ORDERED: POLYETHYLENE (MIRALAX) 17 GM PACK PO PRN (18:28)
[2022-01-18] MEDS ORDERED: GLUCAGON FOR INJ 1 MG VIAL SQ PRN (18:28)
[2022-01-18] MEDS ORDERED: CARBOHYDRATES FOR HYPOGLYCEMIA PO PRN (18:28)
[2022-01-18] MEDS: ENOXAPARIN INJ 30 MG/0.3 ML SYR SQ SCH (20:35)
[2022-01-18] MEDS: gemfibroziL 600 MG TAB PO SCH (20:37)
[2022-01-18] MEDS: INSULIN ASPART PER UNIT SC SCH (20:38)
[2022-01-18] MEDS: LANTUS PER UNIT CHARGE SQ SCH (20:38)
[2022-01-18] MEDS: LOVASTATIN 20 MG TAB PO SCH (20:39)
[2022-01-18] MEDS: LORazepam 0.5 MG TAB PO PRN ×2 (20:44→22:22)
[2022-01-19] MEDS: DOXYCYCLINE HYCLATE 100 MG in DEXTROSE 5% 100 ML IV SCH ×2 (04:57→16:37)
[2022-01-19 05:57] LABS: Basophils # (auto) 0.05 K/uL (0-0.2); Basophils % (auto) 0.5 %; Eosinophils # (auto) 0.13 K/uL (0-0.5); Eosinophils % (auto) 1.3 %; Hematocrit (blood only) 34.1 % (37-47); Hemoglobin 11.2 g/dL (12.0-16.0); Immature Granulocytes # (auto) 0.04 K/uL (0.00-0.02); Immature Granulocytes % (auto) 0.4 %; Lymphocytes % (auto) 15.4 %; Mean Corpuscular Hemoglobin 29.2 pg (25-34); Mean Corpuscular Hgb Conc 32.8 g/dL (32-36); Mean Corpuscular Volume 88.8 fL (80-100); Mean Platelet Volume 10.1 fL (7.4-10.4); Monocytes # (auto) 0.75 K/uL (0.11-0.59); Monocytes % (auto) 7.2 %; Neutrophils % (auto) 75.2 %; Platelet Count 328 K/uL (130-400); RDW Coefficient of Variation 14.5 % (11.5-14.5); Red Blood Count 3.84 M/uL (4.2-5.4); White Blood Count 10.37 K/uL (4.8-10.8)
[2022-01-19 06:38] LABS: BUN Creatinine Ratio 20.4 (10-20); Calcium 8.5 mg/dl (8.5-10.1); Creatinine Clr Calc Pharmacy 49.3 ml/min; Est GFR (African American) 65.4 ml/min; Est GFR (Non-African American) 56.4 ml/min
--- NOTE | 2022-01-19 07:17 | Hospitalist Progress Note ---
Date of Service January 19, 2022 Assessment & Plan (1) Pneumonia: Plan: - Day #7 of symptoms, failed outpatient treatment of Z-Andres, was started on ceftriaxone doxycycline and ED, will continue these for now. - Sputum and blood cultures ordered. - Supportive care with IVF, Tylenol, Mucinex. -given clinical location, and multilobular appearance on CT if not improving consider pulm eval and have post discharge imaging to assure resolution in future (2) Diabetes: Plan: - Hold home medications--> metformin 1000 mg twice daily and NovoLog 70/30, 55 units in the a.m. and 45 units in p.m. - Lantus 10 units twice daily with accucheks ACHS and SSI, can adjust as needed. adjusted ssi 01/19/22 - A1c checked in November 2021--> 7.5% (3) Elevated troponin: Plan: Mildly elevated troponin Likely myocardial demand ischemia Trend serial troponin without significant change No ischemic changes on ECG (4) Dyslipidemia: Plan: - Continue lovastatin 20 mg at night, gemfibrozil 600 mg twice daily. (5) Hypertension: Plan: - Continue losartan 12.5 mg daily. (6) Panic disorder: Plan: - Takes lorazepam 0.5 mg as needed, mostly for help falling asleep. Plan: . - SCDs, Lovenox for VTE PPx. - DNR/DNI. Admission and Anticipated Discharge Date Admission Date: January 18, 2022 Subjective this pt is bothered by a non productive cough, she is weak and tired Review of Systems Review of Systems: Moderate distress and fatigue no headache, no visual changes no speech or swallowing issues no chest pain, pressure or palpitations pt has shortness of breath and cough, non productive, has paryxysms no abdominal pain, nausea or vomiting, diarrhea or constipation no dysuria, hematuria or frequency no focal joint pain or swelling no back pain, CVA tenderness or radicular pain no bruising, bleeding or rashes no focal signs of weakness or numbness or altered sensation no complaints of anxiety or depression.. Physical Exam Physical Exam: The patient appeared well nourished and normally developed. Vital signs as documented. Head exam is normocephalic atraumatic Neck is without JVD, thyromegaly, or carotid bruits. Lungs are with bibasilar rales R>L Cardiac exam, Rhythm is regular.. No murmurs, rubs or gallops. Abdominal exam reveals normal bowel sounds, soft non tender, no masses Extremities are nonedematous and both pedal pulses are present Neurologic exam is alert and oriented, no focal loss of strength or sensation Skin is without bruises or rashes Psychologically is without concerns for anxiety or depression.. Results & Data Results & Data ([facility]) Vital Signs (Past 12 Hours) Vital Signs Temp Pulse Pulse Resp BP BP Pulse Ox 01/19/22 03:38 97.7 F 91 H 18 128/70 90 01/18/22 23:13 99.0 F 88 20 111/71 92 01/18/22 22:17 96 H 01/18/22 19:33 98.4 F 100 H 20 146/68 H 90 PG Care Time/CCT Total # of Minutes Spent Total Time Spent with Patient: Total time spent is greater than 50% in coordination of care (as documented) at patient's floor/unit and/or counseling patient: Coding Level of Care Code 52102 Subseq Hosp Care Lvl 2 Diagnoses Pneumonia J18.9 Diabetes E11.9 Elevated troponin R77.8 Dyslipidemia E78.5 Hypertension I10 Panic disorder F41.0
[2022-01-19] MEDS: INSULIN ASPART PER UNIT SC SCH ×4 (08:06→22:11)
[2022-01-19] MEDS: LANTUS PER UNIT CHARGE SQ SCH ×2 (08:06→22:11)
[2022-01-19] MEDS: gemfibroziL 600 MG TAB PO SCH ×2 (08:07→22:03)
[2022-01-19] MEDS: LOSARTAN POTASSIUM 25 MG TAB PO SCH (08:07)
[2022-01-19] MEDS: CYANOCOBALAMIN (B-12) 500 MCG TABLET PO SCH (08:07)
[2022-01-19] MEDS: cefTRIAXone SODIUM 2,000 MG in DEXTROSE 5% 50 ML IV SCH (08:18)
[2022-01-19] MEDS ORDERED: PROMETHAZINE HCL 12.5 MG/10 ML UDP PO PRN (13:58)
--- NOTE | 2022-01-19 21:10 | Electrocardiogram Report ---
Test Reason : Blood Pressure : / mmHG Vent. Rate : 088 BPM Atrial Rate : 088 BPM P-R Int : 158 ms QRS Dur : 078 ms QT Int : 372 ms P-R-T Axes : 060 055 067 degrees QTc Int : 450 ms Normal sinus rhythm Normal ECG When compared with ECG of 28-MAY-2004 20:56, No significant change was found Confirmed by Tony Desai ([id number]) on 01/19/2022 9:09:49 PM Referred By: Dante Garcia Confirmed By:Tony Desai
[2022-01-19] MEDS: LOVASTATIN 20 MG TAB PO SCH (22:03)
[2022-01-19] MEDS: guaiFENesin 600 MG TABCR PO PRN (22:03)
[2022-01-19] MEDS: ENOXAPARIN INJ 30 MG/0.3 ML SYR SQ SCH (22:03)
[2022-01-19] MEDS: LORazepam 0.5 MG TAB PO PRN (23:52)
[2022-01-20] MEDS: DOXYCYCLINE HYCLATE 100 MG in DEXTROSE 5% 100 ML IV SCH ×2 (04:54→16:21)
[2022-01-20] MEDS: gemfibroziL 600 MG TAB PO SCH ×2 (08:18→20:56)
[2022-01-20] MEDS: LOSARTAN POTASSIUM 25 MG TAB PO SCH (08:18)
[2022-01-20] MEDS: guaiFENesin 600 MG TABCR PO PRN (08:19)
[2022-01-20] MEDS: CYANOCOBALAMIN (B-12) 500 MCG TABLET PO SCH (08:19)
[2022-01-20] MEDS: INSULIN ASPART PER UNIT SC SCH ×4 (08:23→21:04)
[2022-01-20] MEDS: LANTUS PER UNIT CHARGE SQ SCH ×2 (08:23→21:05)
[2022-01-20] MEDS: cefTRIAXone SODIUM 2,000 MG in DEXTROSE 5% 50 ML IV SCH (08:24)
--- NOTE | 2022-01-20 14:49 | Hospitalist Progress Note ---
Date of Service January 20, 2022 Assessment & Plan (1) Pneumonia: Plan: - Symptom onset approximately 01/13 Failed to improve after outpatient Z-Andres, reportedly did complete 3 doses of this Was converted to Rocephin/doxycycline in ER Patient does feel she is beginning to clinically improve CTA: No pulmonary emboli identified. Patchy multilobar bilateral groundglass and consolidative opacities are suggestive of multifocal pneumonia. Follow-up imaging after treatment course recommended to document resolution. Bronchial wall thickening suggestive of bronchitis with mucous plugging. Borderline enlarged mediastinal and hilar lymph nodes are likely reactive. with multifocal pneumonia - Sputum and blood cultures pending Recommend repeat CT as outpatient for resolution, may consider pulmonology referral as outpatient - Supportive care with IVF, Tylenol, Mucinex. Starting to clinically progress, given borderline fever and failure of outpatient course follow fever curve overnight continue current antibiotics. P T/OT ordered (2) Diabetes: Plan: - Hold home medications--> metformin 1000 mg twice daily and NovoLog 70/30, 55 units in the a.m. and 45 units in p.m. - Lantus 10 units twice daily with accucheks ACHS and SSI, can adjust as needed. adjusted ssi 01/19/22 - A1c checked in November 2021--> 7.5% BSG high 100s,/234 in afternoon. Glycemic parameters tightened slightly 01/20 (3) Elevated troponin: Plan: Mildly elevated troponin Likely myocardial demand ischemia Trend serial troponin without significant change No ischemic changes on ECG (4) Dyslipidemia: Plan: - Continue lovastatin 20 mg at night, gemfibrozil 600 mg twice daily. (5) Hypertension: Plan: - Continue losartan 12.5 mg daily. (6) Panic disorder: Plan: - Takes lorazepam 0.5 mg as needed, mostly for help falling asleep. Plan: - SCDs, Lovenox for VTE PPx. - DNR/DNI. Admission and Anticipated Discharge Date Admission Date: January 18, 2022 Subjective Seen at the bedside this morning. Is sitting up in a chair at time of assessment. She reports she is slowly starting to improve a little bit today from yesterday, still feels very fatigued but a little better and definitely better than on admission Continues to have a nonproductive cough. Continues to feel more short of breath with exertion, no shortness of breath at rest. Borderline febrile overnight 37.6, last felt feverish evening of admission. No nausea/vomiting/diarrhea/constipation. Feels about 30% of her normal baseline. Denies chest pain, chest pressure, lightheadedness, dizziness Review of Systems Review of Systems: All systems reviewed & are unremarkable except as noted in Subjective Physical Exam Physical Exam: General: A&Ox3. NAD. Cooperative. Appears fatigued and slightly ill but nontoxic HEENT: Atraumatic, normocephalic. Vision and hearing intact. Pulm: basilar crackles without overt rales today. Moderate air movement. Symmetrical chest rise. No increase in work of breathing. No respiratory distress. Cardiac: RRR, -mrg. Radial pulses intact and symmetrical. Abdominal: Nontender, nondistended, soft. BS present. Results & Data Results & Data ([facility]) Vital Signs (Past 12 Hours) Vital Signs Temp Pulse Pulse Resp BP Pulse Ox 01/20/22 07:30 79 01/20/22 03:02 37.6 C H 90 18 119/66 94 01/19/22 22:48 36.7 C 87 20 143/70 H 94 01/19/22 22:17 92 H 01/19/22 19:39 36.7 C 95 H 18 162/76 H 93 PG Care Time/CCT Total # of Minutes Spent Total Time Spent with Patient: Total time spent is greater than 50% in coordination of care (as documented) at patient's floor/unit and/or counseling patient: Coding Level of Care Code 75951 Subseq Hosp Care Lvl 2 Diagnoses Pneumonia J18.9 Diabetes E11.9 Elevated troponin R77.8 Dyslipidemia E78.5 Hypertension I10 Panic disorder F41.0
[2022-01-20] MEDS: ENOXAPARIN INJ 30 MG/0.3 ML SYR SQ SCH (20:56)
[2022-01-20] MEDS: LOVASTATIN 20 MG TAB PO SCH (20:57)
[2022-01-20] MEDS: guaiFENesin/DEXTROM SYRUP 200MG/20MG 10ML UDC PO PRN (20:58)
[2022-01-20] MEDS: LORazepam 0.5 MG TAB PO PRN (21:04)
[2022-01-21] MEDS: DOXYCYCLINE HYCLATE 100 MG in DEXTROSE 5% 100 ML IV SCH (03:32)
[2022-01-21 07:07] LABS: Basophils % (auto) 1.1 %; Eosinophils # (auto) 0.28 K/uL (0-0.50); Eosinophils % (auto) 3.1 %; Hematocrit (blood only) 37.7 % (34.1-44.9); Hemoglobin 12.1 g/dl (12.0-16.0); Immature Granulocytes # (auto) 0.15 K/uL (0.00-0.02); Immature Granulocytes % (auto) 1.7 %; Lymphocytes % (auto) 24.7 %; Mean Corpuscular Hemoglobin 28.2 pg (25.0-34.0); Mean Corpuscular Hgb Conc 32.1 g/dL (32.0-36.0); Mean Corpuscular Volume 87.9 fL (80.0-100.0); Monocytes # (auto) 0.58 K/uL (0.24-0.82); Monocytes % (auto) 6.5 %; Neutrophils # (auto) 5.61 K/uL (1.4-6.5); Neutrophils % (auto) 62.9 %; Platelet Count 394 K/uL (130-400); RDW Coefficient of Variation 13.9 % (11.5-14.5); RDW Standard Deviation 44.6 fL (36.4-46.3); Red Blood Count 4.29 M/uL (3.93-5.22); White Blood Count 8.92 K/ul (4.8-10.8)
[2022-01-21 07:22] LABS: BUN Creatinine Ratio 29.2 (10-20); Calcium 9.4 mg/dl (8.5-10.1); Creatinine Clr Calc Pharmacy 51.5 ml/min; Est GFR (Non-African American) 59.5 ml/min; Potassium 4.3 mmol/L (3.5-5.1)
[2022-01-21] MEDS: INSULIN ASPART PER UNIT SC SCH ×2 (08:31→12:22)
[2022-01-21] MEDS: LANTUS PER UNIT CHARGE SQ SCH (08:36)
[2022-01-21] MEDS: cefTRIAXone SODIUM 2,000 MG in DEXTROSE 5% 50 ML IV SCH (08:36)
[2022-01-21] MEDS: guaiFENesin 600 MG TABCR PO PRN (08:38)
[2022-01-21] MEDS: gemfibroziL 600 MG TAB PO SCH (08:38)
[2022-01-21] MEDS: LOSARTAN POTASSIUM 25 MG TAB PO SCH (08:39)
[2022-01-21] MEDS: CYANOCOBALAMIN (B-12) 500 MCG TABLET PO SCH (08:39)
[2022-01-21] MEDS: guaiFENesin/DEXTROM SYRUP 200MG/20MG 10ML UDC PO PRN (10:40)
--- NOTE | 2022-01-21 12:00 | Discharge Summary ---
Date of Service January 21, 2022 Admission HPI Per Admitting Provider Anu Frances is an 86-year-old female with a past medical history significant for DM2 with neuropathy, dyslipidemia, hypertension, arthritis, and panic disorder who presents today for worsening shortness of breath and fatigue. 1 week ago, patient started experiencing central chest pain associated with a cough and fatigue, as well as low grade fevers. She saw her PCP, who started her on a Z-Andres for presumed bronchitis/pneumonia 3 days ago, however she is not been feeling any better, in fact feels worse. She continues to have chest pain associated with her cough, which is productive for some sputum, shortness of breath, as well as low grade fever and chills. In ED, VS are wnl and stable, however patient is tachypneic. Labs are significant for WBC 11.45 and lactate 3.1, hs trop 46.7. Respiratory biofire panel unremarkable. CXR showed right mid upper lung ill-defined opacities suspicious for pneumonia, Chest CT showed patchy multilobar bilateral groundglass and consolidative opacities suggestive of multifocal pneumonia. Principal Diagnosis Multifocal pneumonia Discharge Exam General: A&Ox3. NAD. Cooperative. HEENT: Atraumatic, normocephalic. Pulm: Trace basilar crackles which clear on deep inspiration, otherwise CTAB A&P. -wheezes, -rales, -rhonchi. Symmetrical chest rise. No increase in work of breathing. No respiratory distress. Cardiac: RRR, -mrg. Radial pulses intact and symmetrical. Abdominal: Nontender, nondistended, soft. BS present. Discharge Data Allergies Allergy/AdvReac Type Severity Reaction Status Date / Time Penicillins Allergy Severe HIVES Verified 01/18/22 15:09 aspirin Allergy Intermediate RASH Verified 01/18/22 15:09 Sulfa (Sulfonamide Allergy Intermediate RASH Verified 01/18/22 15:09 Antibiotics) Consultations 01/18/22 15:30 ED Decision to Admit Stat Ordered Studies 01/18/22 12:30 CT angio chest PE protocol Stat Hospital Course (1) Pneumonia: Anu is an 86-year-old female who presented with multifocal pneumonia which had failed 3 days of outpatient treatment with azithromycin. Following admission she was treated with ceftriaxone and doxycycline and defervesced with resolution of her white count. She was discharged to complete a course of antibiotics with Doxy/cefdinir with follow-up to her PCP. She should have reassessment, and a repeat CT for progression/resolution. To do as outpatient: 1. Complete 7-day course of antibiotics with cefdinir, 5-day course of doxycycline with follow-up to PCP. Extension if needed based on proggression and follow-up 2. Repeat CT as outpatient for resolution 3. Home Physical Therapy CAP - Symptom onset approximately 01/13 Failed to improve after outpatient Z-Andres, reportedly did complete 3 doses of this Was converted to Rocephin/doxycycline in ER Bio fire negative Was clinically improving at time of discharge, had defervesced, white count resolved CTA: No pulmonary emboli identified. Patchy multilobar bilateral groundglass and consolidative opacities are suggestive of multifocal pneumonia. Follow-up imaging after treatment course recommended to document resolution. Bronchial wall thickening suggestive of bronchitis with mucous plugging. Borderline enlarged mediastinal and hilar lymph nodes are likely reactive. with multifocal pneumonia -Sputum culture with light normal cari. Blood cultures no growth at 48 hours, final read is pending Recommend repeat CT as outpatient for resolution - Supportive care with IVF, Tylenol, Mucinex. (2) Diabetes: - Hold home medications--> metformin 1000 mg twice daily and NovoLog 70/30, 55 units in the a.m. and 45 units in p.m. - Lantus 10 units twice daily with accucheks ACHS and SSI, can adjust as needed. adjusted ssi 01/19/22 - A1c checked in November 2021--> 7.5% BSG high 100s,/234 in afternoon in setting of acute illness. Glycemic parameters tightened slightly 01/20 and 01/21 (3) Elevated troponin: Mildly elevated troponin Likely myocardial demand ischemia Trend serial troponin without significant change No ischemic changes on ECG (4) Dyslipidemia: - Continue lovastatin 20 mg at night, gemfibrozil 600 mg twice daily. (5) Hypertension: - Continue losartan 12.5 mg daily. (6) Panic disorder: - Takes lorazepam 0.5 mg as needed, mostly for help falling asleep. - SCDs, Lovenox for VTE PPx. - DNR/DNI. Total Time Total Time Spent Total Time Spent (In Minutes): Time spend day of discharge 40 minutes including direct patient care, d ocumentation, review of labs and images, and coordination of care. Discharge Plan Discharge Items Patient Disposition: Home - Self-Care Reason For Visit: PNEUMONIA Discharge Diagnosis: Multifocal pneumonia Condition on Discharge: Fair Activity: Per Instructions section Non-emergency contact: Primary Care Provider Call non-emergency contact if: you have any medication questions, your symptoms worsen and your pain is not controlled Follow-up/Referrals: Abner Vaz, [Primary Care Provider] - 01/26/22 10:30 am ([place] [place] [facility] [place]. You should also keep your appointment that is already in place for 2021 at 8:45am at this office.) Diet: Regular Addtl Attending Provider Instructions: You are seen in the hospital for pneumonia. A CAT scan of your lung did not show any blood clots, but did show evidence of multifocal pneumonia. You were treated with antibiotics and began to clinically improve. Antibiotics have been prescribed as below. It can take several weeks to feel better from pneumonia, you will require repeat imaging for progression/resolution as an outpatient. If you do clinically worsen or have return of fevers/chills you should be seen for medical reevaluation. Your white blood cell count had returned to normal by time of discharge, and you are not having fevers in the 24 hours prior to discharge You were seen by PT/OT who recommended outpatient rehab. Home Physical therapy is being arranged for you. You have been prescribed an antibiotic, doxycycline. Please take doxycycline 100 mg by mouth twice daily for 3 more days to complete 5 days of treatment. You have been prescribed an antibiotic, cefdinir. Please take cefdinir 300 mg by mouth twice daily for 5 days to complete 7 days of treatment. You should be seen within the week by your primary care physician for reassessment and your course may be adjusted based on clinical progression and/or repeat imaging [place] [facility] [place]. Appointment has been scheduled for 01/26/2022 at 10:30 AM. You should also keep your appointment that is already in place for 2021 at 8:45am at this office. Pending Studies at Discharge: No Stand-Alone Forms: My [employer], Smoking Cessation Medications and DC Order Prescriptions: New cefdinir 300 mg capsule 300 mg PO BID 5 Days Qty: 10 RF: 0 doxycycline hyclate 100 mg capsule 100 mg PO BID 3 Days Qty: 6 RF: 0 Continued insulin asp prt-insulin aspart [Novolog Mix 70-30FlexPen U-100] 100 unit/mL (70-30) insulin pen See Rx Instructions .ROUTE .COMPLEX RF: 0 losartan 25 mg tablet 12.5 mg PO DAILY RF: 0 gemfibrozil [Lopid] 600 mg tablet 600 mg PO BID Qty: 60 RF: 2 lorazepam [Ativan] 0.5 mg tablet 0.5 mg PO DAILY PRN (Reason: anxiety) Qty: 30 RF: 0 lovastatin 20 mg tablet 20 mg PO QPM Qty: 30 RF: 2 metformin 1,000 mg tablet 1,000 mg PO BID Qty: 60 RF: 2 cyanocobalamin (vitamin B-12) [Vitamin B-12] 1,000 mcg Tablet 1,000 mcg PO DAILY RF: 0 Discharge Orders: Discharge Order (Routine); Ordered 01/21/22 Ordered By: Jaylon Cooper Admission Data Admit Date/Time: 01/18/22 16:41 Attending Provider: Jaylon Cooper Admit Provider: Bel Gamboa Primary Care Provider: Abner Vaz Other Providers: Bel Gamboa Coding Level of Care Code D/C DAY MANAGEMENT >30 MINS Diagnoses Pneumonia J18.9 Diabetes E11.9 Elevated troponin R77.8 Dyslipidemia E78.5 Hypertension I10 Panic disorder F41.0
--- NOTE | 2022-01-25 14:15 | Coding Query ---
To promote full compliance with coding requirements relating to patient care, provider participation is requested in all cases of salesperson neckties uncertainty. Please assist us with the question(s) below: Coding Question(s): The diagnosis(es) below was documented in the ER and then subsequently fell off all further documentation. Please indicate if it is still a possible diagnosis or ruled out. Physician's Response(s): POTENTIAL/LIKELY SEPSIS POA ( ) Diagnosed and POA. Please specify further, in your clinical opinion: ( ) likely due to Pneumonia ( ) likely due to Other: Please Specify ( ) likely due to Unknown Infection ( ) Diagnosed and not POA ( x ) Ruled out ( ) Other (please specify) At time of admission patient did have an elevated lactate which quickly normalized with fluids. She was tachycardic above 90, but did not have a fever greater than 38, hypotension, respiratory rate exceeding 20, or leukocytosis and did not meet qSOFA/SIRS criteria of sepsis. MANN
== END 2022-01-21 16:13 | disposition home or self-care (01) | DRG 194 ==
LOC: ED 11:34 → 2N 16:41 → SUATTDRO 16:41 → 2N 17:38

== ENCOUNTER 2022-08-20 13:28 | Inpatient (IN) ==
--- NOTE | 2022-08-20 14:43 | Emergency Department Note ---
Impression & Plan Acute dyspnea, Elevated troponin I level ED Provider Note NAME: TILA GARCIA AGE: 87 SEX: F : 1935 ARRIVES VIA: Walk-In INFORMANT: Patient, ED PROVIDER(S): Ariel Troy MD CHIEF COMPLAINT: Shortness of breath MEDICAL DECISION MAKING: Patient did present due to concern for shortness of breath. Blood work was obt ained along with CT angiography of the chest EKG and troponin. The patient was also ordered a DuoNeb treatment. Patient did not say that her breathing treatment helped her symptoms. Patient has a normal white count H&H and platelet count. Patient's kidney function is unremarkable. Patient does have an elevated anion gap but her electrolytes are normal including bicarb. Calcium slightly elevated 10.5 along with BSG at 145. The patient's troponin is elevated at 58.5 the patient has had elevated troponins in the past. No active chest pains. EKG with no changes from priors. Patient CT angiography and chest x-ray were completed. Patient's chest x-ray does not show any acute process. CT angiography of the chest shows no central lobar pulmonary emboli but the patient's pulmonary artery is suboptimally assessed due to respiratory motion. I did speak with the patient and the patient would prefer inpatient treatment at this time which I will think is unreasonable as the patient did have significant increased work of breathing and shortness of breath with an elevated troponin. I did speak the on-call hospitalist Dr. Cooper and the patient was admitted to the medicine service. Prior /Outside records reviewed: I did review the patient's prior elevated troponins. 1 had occurred during a hospitalization where the patient did have a pneumonia. This was in January 2022. Differential diagnosis: Reactive airway disease, pneumonia, pneumothorax, COPD, CHF, infections, cardiac ischemia, pulmonary embolism, musculoskeletal, gastrointestinal, as well as other pathologies. Diagnostics, as interpreted by me: ECG: Normal sinus rhythm, rate of 89 normal intervals normal axis T wave flattening in aVL. No ST elevations. No significant change from comparison May 05, 2022. Cardiac monitoring: An order was placed for continuous cardiac monitoring. The monitor shows a rate of 85 with sinus rhythm. Patient was placed on pulse oximetry Medical decision rules: None Imaging studies: See below HPI: Patient presents due to concern for shortness of breath and as a referral from the outpatient setting from Dr. Lara's office. The patient has had shortness of breath for several weeks but seems to be acutely worsening. The patient does have occasional cough but it is dry. Non-smoker. Patient states that she has had several bouts of pneumonia in the past. Patient denies any leg swelling or calf pain. No history of DVT or PE. Patient denies any nausea vomiting or diarrhea and the patient denies any bright red blood per rectum or dark tarry stools. Patient believes that her hydration has been appropriate and that her appetite has been good. PAST MEDICAL HISTORY: See Below PAST SURGICAL HISTORY: See Below SOCIAL HISTORY: See Below HOME MEDICATIONS: See Below ALLERGIES: See Below VITALS: See Below PHYSICAL EXAMINATION: GENERAL: Tachypneic, increased work of breathing, mild distress, wearing glasses and a mask. EYE EXAM: Normal conjunctiva. PERRL, no anisocoria and EOM's grossly intact w/o pain. NECK: Supple, no nuchal rigidity, no adenopathy, non-tender. No signs of meningismus. FROM of the neck with good chin to chest and neck extension. No stridor. LUNGS: Clear to auscultation. Normal chest wall mechanics. HEART: NSR, no MRG. ABDOMEN: Abdomen soft, non-tender, normo-active bowel sounds, no masses, no rebound or guarding. BACK: No CVA TTP. SKIN: No rashes and no bruising. UPPER EXTREMITIES: Upper extremities are grossly normal. LOWER EXTREMITIES: Grossly normal, no edema. Negative Homans' sign bilaterally. NEURO EXAM: A&O x3, cranial nerves II-XII grossly intact, normal speech, moves all 4 extremities. Past Med/Surg History Medical History Diabetes Diabetic neuropathy Dyslipidemia Leukocytosis Panic disorder SOB (shortness of breath) Tachypnea Surgical History History of cholecystectomy Family History Daughter Breast cancer Son Marfan syndrome Family/Other Marfan syndrome Sister Pancreatic cancer Mother COPD (chronic obstructive pulmonary disease) Father COPD (chronic obstructive pulmonary disease) Brother COPD (chronic obstructive pulmonary disease) Denies family history of Ovarian cancer Prostate cancer Myocardial infarction Colorectal cancer Social History Smoking Status: Never smoker Second Hand Exposure: No; Hx Alcohol Use: No Hx Substance Use: No Preferred Language: Croatian Communication Ability: Effective Visual Impairment: No Limitations Hearing Ability: Normal Rug Touch Up Painter Required: No Beliefs That Will Affect Care: None marital status: / Current Living Situation: Alone current occupational status: retired How many Children do You have: 3 Other Information That Helps Us Care for You: No Feels Safe at Home: Yes Safety Concerns: Feels Safe At This Time Childhood Exposure to Second-Hand Smoke: Yes caffeine: No Dental Care, Regularly: Yes Physical Activity Frequency: Daily Seatbelt Use: always Sunscreen Use: Yes Assistive Devices: Cane and Walker Allergies Allergies Allergy/AdvReac Type Severity Reaction Status Date / Time Penicillins Allergy Severe HIVES Verified 08/20/22 16:35 aspirin Allergy Intermediate RASH Verified 08/20/22 16:35 Sulfa (Sulfonamide Allergy Intermediate RASH Verified 08/20/22 16:35 Antibiotics) Home Meds Home Medications Medication Instructions Recorded Confirmed cyanocobalamin (vitamin B-12) 1,000 mcg PO DAILY 01/18/22 08/20/22 1,000 mcg tablet (Vitamin B-12) Previous Rx's Medication Instructions Recorded lorazepam 0.5 mg tablet (Ativan) 0.5 mg PO DAILY PRN anxiety #30 12/21/21 tabs gemfibrozil 600 mg tablet (Lopid) 600 mg PO BID #180 tabs 04/22/22 losartan 25 mg tablet 12.5 mg PO DAILY #90 tabs 04/22/22 lovastatin 20 mg tablet 20 mg PO QPM #90 tabs 04/22/22 metformin 1,000 mg tablet 1,000 mg PO BID #180 tabs 04/22/22 albuterol sulfate 90 mcg/actuation 2 puffs inhalation 6XD PRN 05/05/22 aerosol inhaler shortness of breath or wheezing #6.7 grams albuterol sulfate 2.5 mg/3 mL 2.5 mg (3 mL) inhalation Q4H PRN 06/09/22 (0.083 %) solution for nebulization shortness of breath or wheezing #180 mL nebulizers #1 ea 06/09/22 insulin aspar prot-insulin aspart See Rx Instructions .Route 07/22/22 100 unit/mL (70-30) subcutaneous .COMPLEX #30 mL pen (Novolog Mix [id number] U-100) Results & Data (ED) Vital Signs Vital Signs - 24 hr 08/20/22 13:30 08/20/22 15:02 08/20/22 15:44 Temperature 36.8 C Temperature Source Temporal Artery Scan Pulse Rate 110 H Pulse Rate [Apical] 87 Pulse Rate from SpO2 Sensor Respiratory Rate 18 27 H Blood Pressure 157/89 H Blood Pressure [Left Arm] Blood Pressure [Right Arm] 137/79 Blood Pressure Mean 111 Blood Pressure Mean [Left Arm] Blood Pressure Mean [Right Arm] 98 Pulse Oximetry 98 99 98 Oxygen Delivery Method Room Air Nebulizer Room Air Sepsis Recent Fever Within 48 Hours No Sepsis New/Unexplained Change in Mental Status No Sepsis Action Taken by Nursing No Action Required 08/20/22 15:44 08/20/22 15:08 08/20/22 15:30 Temperature Temperature Source Pulse Rate 88 Pulse Rate [Apical] 81 Pulse Rate from SpO2 Sensor 88 Respiratory Rate 24 25 H Blood Pressure 122/80 Blood Pressure [Left Arm] 156/84 H Blood Pressure [Right Arm] Blood Pressure Mean 94 Blood Pressure Mean [Left Arm] 108 Blood Pressure Mean [Right Arm] Pulse Oximetry 99 99 Oxygen Delivery Method Room Air Sepsis Recent Fever Within 48 Hours Sepsis New/Unexplained Change in Mental Status Sepsis Action Taken by Nursing 08/20/22 15:30 08/20/22 15:44 08/20/22 15:44 Temperature Temperature Source Pulse Rate 79 78 Pulse Rate [Apical] Pulse Rate from SpO2 Sensor 88 81 Respiratory Rate 16 23 Blood Pressure 156/84 H Blood Pressure [Left Arm] Blood Pressure [Right Arm] Blood Pressure Mean 108 Blood Pressure Mean [Left Arm] Blood Pressure Mean [Right Arm] Pulse Oximetry 91 100 Oxygen Delivery Method Sepsis Recent Fever Within 48 Hours Sepsis New/Unexplained Change in Mental Status Sepsis Action Taken by Nursing 08/20/22 16:00 08/20/22 16:00 08/20/22 16:30 Temperature Temperature Source Pulse Rate 73 Pulse Rate [Apical] Pulse Rate from SpO2 Sensor 74 Respiratory Rate 12 Blood Pressure 146/80 H 136/81 Blood Pressure [Left Arm] Blood Pressure [Right Arm] Blood Pressure Mean 102 99 Blood Pressure Mean [Left Arm] Blood Pressure Mean [Right Arm] Pulse Oximetry 91 Oxygen Delivery Method Sepsis Recent Fever Within 48 Hours Sepsis New/Unexplained Change in Mental Status Sepsis Action Taken by Nursing 08/20/22 16:30 08/20/22 17:00 08/20/22 17:00 Temperature Temperature Source Pulse Rate 70 87 Pulse Rate [Apical] Pulse Rate from SpO2 Sensor 71 86 Respiratory Rate 11 L 25 H Blood Pressure 165/99 H Blood Pressure [Left Arm] Blood Pressure [Right Arm] Blood Pressure Mean 121 Blood Pressure Mean [Left Arm] Blood Pressure Mean [Right Arm] Pulse Oximetry 97 98 Oxygen Delivery Method Sepsis Recent Fever Within 48 Hours Sepsis New/Unexplained Change in Mental Status Sepsis Action Taken by Nursing 08/20/22 17:30 08/20/22 17:30 Temperature Temperature Source Pulse Rate 87 Pulse Rate [Apical] Pulse Rate from SpO2 Sensor 88 Respiratory Rate 21 Blood Pressure 160/77 H Blood Pressure [Left Arm] Blood Pressure [Right Arm] Blood Pressure Mean 104 Blood Pressure Mean [Left Arm] Blood Pressure Mean [Right Arm] Pulse Oximetry 93 Oxygen Delivery Method Sepsis Recent Fever Within 48 Hours Sepsis New/Unexplained Change in Mental Status Sepsis Action Taken by Prison Medications Current Medication List: was personally reviewed by me Laboratory Data Attestation: I reviewed the patient's lab results. 08/20/22 15:20 08/20/22 15:20 Lab Results 08/20/22 08/20/22 08/20/22 Range/Units 15:20 15:20 15:20 WBC 7.29 (4.8-10.8) K/ul RBC 5.17 (4.20-5.40) M/uL Hgb 14.9 (12.0-16.0) g/dl POC Hgb (12.0-16.0) g/dl Hct 44.2 (37.0-47.0) % POC Hct (37-47) % MCV 85.5 (80.0-100.0) fL MCH 28.8 (25.0-34.0) pg MCHC 33.7 (32.0-36.0) g/dL RDW Std Deviation 43.6 (36.4-46.3) fL RDW Coeff of Arsh 14.1 (11.5-14.5) % Plt Count 315 (130-400) K/uL MPV 10.6 (9.4-12.4) fL Immature Gran % (Auto) 0.5 % Neut % (Auto) 59.3 % Lymph % (Auto) 28.9 % [facility] % (Auto) 7.3 % Eos % (Auto) 2.9 % Baso % (Auto) 1.1 % Neut # (Auto) 4.32 (1.40-6.50) K/uL Lymph # (Auto) 2.11 (1.2-3.4) K/uL [facility] # (Auto) 0.53 (0.11-0.59) K/uL Eos # (Auto) 0.21 (0-0.50) K/uL Baso # (Auto) 0.08 (0-0.2) K/uL Immature Gran # (Auto) 0.04 (0.01-0.20) K/uL PT 10.6 (9.0-12.0) Seconds INR 1.0 (0.9-1.1) APTT 23.6 (21.0-31.0) Seconds PTT Ratio 0.9 POC Sodium (135-144) mmol/L Sodium 140 (136-145) mmol/L POC Potassium (3.3-5.0) mmol/L Potassium 4.4 (3.5-5.1) mmol/L POC Chloride (101-112) mmol/L Chloride 100 (98-107) mmol/L Carbon Dioxide 23 (21-32) mmol/L POC Total CO2 (24-31) mmol/L Anion Gap 17 H (3-11) POC Anion Gap (16-25) mmol/L POC BUN (7-18) mg/dl BUN 38 H (6-23) mg/dl Creatinine 1.19 (0.6-1.2) mg/dl POC Creatinine (0.6-1.3) mg/dl Est Cr Clr Drug Dosing Not Reportable Est GFR ( Amer) 48.2 ml/min Est GFR (Non-Af Amer) 41.6 ml/min BUN/Creatinine Ratio 31.9 H (10-20) Glucose 145 H (70-99(Fasting)) mg/dl POC Glucose (other) (70-99) mg/dl Calcium 10.5 H (8.5-10.1) mg/dl POC Ioniz Calcium Jo (1.12-1.32) mmol/l Magnesium 2.0 (1.7-2.4) mg/dl Total Bilirubin 0.3 (0.2-1.0) mg/dl AST 23 (13-39) U/L ALT 22 (7-52) U/L Alkaline Phosphatase 90 (34-104) U/L Troponin I High Sens 58.5 H* (0-14) pg/ml Total Protein 7.6 (6.0-8.3) gm/dl Albumin 4.6 (3.4-5.0) gm/dl Globulin 3.0 (2.5-4.0) gm/dl Albumin/Globulin Ratio 1.5 (0.9-2) SARS-CoV-2, RNA, NAAT (NEGATIVE) 08/20/22 08/20/22 08/20/22 Range/Units 15:20 15:23 15:46 WBC (4.8-10.8) K/ul RBC (4.20-5.40) M/uL Hgb (12.0-16.0) g/dl POC Hgb 14.6 (12.0-16.0) g/dl Hct (37.0-47.0) % POC Hct 43 (37-47) % MCV (80.0-100.0) fL MCH (25.0-34.0) pg MCHC (32.0-36.0) g/dL RDW Std Deviation (36.4-46.3) fL RDW Coeff of Arsh (11.5-14.5) % Plt Count (130-400) K/uL MPV (9.4-12.4) fL Immature Gran % (Auto) % Neut % (Auto) % Lymph % (Auto) % [facility] % (Auto) % Eos % (Auto) % Baso % (Auto) % Neut # (Auto) (1.40-6.50) K/uL Lymph # (Auto) (1.2-3.4) K/uL [facility] # (Auto) (0.11-0.59) K/uL Eos # (Auto) (0-0.50) K/uL Baso # (Auto) (0-0.2) K/uL Immature Gran # (Auto) (0.01-0.20) K/uL PT (9.0-12.0) Seconds INR (0.9-1.1) APTT (21.0-31.0) Seconds PTT Ratio POC Sodium 138 (135-144) mmol/L Sodium (136-145) mmol/L POC Potassium 4.3 (3.3-5.0) mmol/L Potassium (3.5-5.1) mmol/L POC Chloride 105 (101-112) mmol/L Chloride (98-107) mmol/L Carbon Dioxide (21-32) mmol/L POC Total CO2 23 L (24-31) mmol/L Anion Gap (3-11) POC Anion Gap 16.0 (16-25) mmol/L POC BUN 38 H (7-18) mg/dl BUN (6-23) mg/dl Creatinine (0.6-1.2) mg/dl POC Creatinine 1.1 (0.6-1.3) mg/dl Est Cr Clr Drug Dosing Est GFR ( Amer) ml/min Est GFR (Non-Af Amer) ml/min BUN/Creatinine Ratio (10-20) Glucose (70-99(Fasting)) mg/dl POC Glucose (other) 149 H (70-99) mg/dl Calcium (8.5-10.1) mg/dl POC Ioniz Calcium Jo 1.16 (1.12-1.32) mmol/l Magnesium (1.7-2.4) mg/dl Total Bilirubin (0.2-1.0) mg/dl AST (13-39) U/L ALT (7-52) U/L Alkaline Phosphatase (34-104) U/L Troponin I High Sens Cancelled (0-14) pg/ml Total Protein (6.0-8.3) gm/dl Albumin (3.4-5.0) gm/dl Globulin (2.5-4.0) gm/dl Albumin/Globulin Ratio (0.9-2) SARS-CoV-2, RNA, NAAT NEGATIVE (NEGATIVE) Administered Medications Enoxaparin Sodium (Enoxaparin Inj 40 Mg/0.4 Ml Syr) 40 mg SQ Q24H JEFERSON Stop: 09/20/22 08:59 Last Admin: 08/21/22 07:48 Dose: 40 mg Documented By: VIOLET Insulin Aspart (Insulin Aspart Per Unit) 0 units SC ACHS JEFERSON Stop: 09/19/22 20:59 Last Admin: 08/20/22 21:10 Dose: 1 units Documented By: [id number] Co-signed By: ARNULFO Insulin Glargine (Lantus Per Unit Charge) 8 units SQ BID [facility] Stop: 09/19/22 20:59 Last Admin: 08/20/22 21:10 Dose: 8 units Documented By: [id number] Co-signed By: ARNULFO Lorazepam (Lorazepam 0.5 Mg Tab) 0.5 mg PO DAILY PRN PRN Reason: anxiety Stop: 09/19/22 22:37 Last Admin: 08/20/22 23:44 Dose: 0.5 mg Documented By: WENCESLAO Losartan Potassium (Losartan Potassium 25 Mg Tab) 12.5 mg PO DAILY [facility] Stop: 09/20/22 08:59 Last Admin: 08/21/22 07:48 Dose: 12.5 mg Documented By: VIOLET Lovastatin (Lovastatin 20 Mg Tab) 20 mg PO QPM [facility] Stop: 09/19/22 22:37 Last Admin: 08/20/22 23:44 Dose: 20 mg Documented By: WENCESLAO Discontinued Medications Albuterol (Albut/Ipratrop 3mg/0.5mg Neb 3 Ml Vial) 3 ml NEB NOW STA; Protocol Stop: 08/20/22 14:52 Last Admin: 08/20/22 14:59 Dose: 3 ml Documented By: MICHAEL Parenteral Electrolytes (Normosol-R) 1,000 mls @ 80 mls/hr IV .[id number] [facility] Stop: 08/21/22 06:29 Last Infusion: 08/21/22 06:23 Dose: 0 mls/hr Documented By: Admin: 08/20/22 18:50 Dose: 80 mls/hr Documented By: [id number] Ioversol (Optiray 320 500ml) 115 ml IV ONCE ONE Stop: 08/20/22 15:39 Last Admin: 08/20/22 15:38 Dose: 115 ml Documented By: MONA Imaging Data Radiologist's Impression: Chest X-Ray 08/20/22 13:35 XR chest 1V portable HISTORY: Shortness of breath. COMPARISON: Chest 05/05/2022. FINDINGS: Stable mild interstitial thickening within the lower lung zones. Otherwise, the lungs are clear. No pleural effusions. No pneumothorax. The heart is normal in size. There are calcifications within the aortic knob. IMPRESSION: No significant change compared to the prior study. No acute process. ACT 112: Negative or not required by law. Electronically signed by: Marlo Chan M.D. 08/20/2022 3:37 PM Chest CTA 08/20/22 14:53 CT ANGIOGRAPHY OF THE CHEST, PULMONARY EMBOLUS PROTOCOL CLINICAL HISTORY: Shortness of breath COMPARISON STUDY: Chest CT April 21, 2022. Chest radiograph performed earlier today. TECHNIQUE: Following IV administration of 115 mL of Optiray, helical axial images of the chest were obtained utilizing the pulmonary embolus protocol. Maximal intensity projections and sagittal and coronal reformats were viewed on an independent 3D workstation. IV contrast was administered without complication. Automated exposure control was utilized for the study. A dose lowering technique was utilized adhering to the principles of ALARA. CT DOSE: 516.11 mGycm FINDINGS: No central or lobar pulmonary emboli are identified. The segmental and subsegmental pulmonary arteries are suboptimally assessed due to respiratory motion. There is no thoracic aortic dissection. Size of the heart is normal. No pericardial effusion is present. No large thoracic lymph nodes. There is no pn eumothorax or pleural effusion. Lungs are suboptimally assessed due to respiratory motion. Mild groundglass opacities within lungs favor atelectasis. There is no consolidation to suggest pneumonia. No acute fractures within the bony thorax are noted. Visualized portions of the upper abdomen are unre markable. IMPRESSION: 1. No central or lobar pulmonary emboli. Remainder of pulmonary arteries suboptimally assessed due to respiratory motion. 2. No consolidation to suggest pneumonia. Groundglass opacities which favor atelectasis. ACT 112: Negative or not required by law. Electronically signed by: George Jimenez M.D. 08/20/2022 4:04 PM Discharge Plan Visit Data Chief Complaint: Shortness of Breath/Dyspnea Stated Complaint: TROUBLE BREATHING, REF BY DR CHRISTINE ED Provider: Ariel Troy Discharge Problem: Acute dyspnea, Elevated troponin I level Patient Disposition: Admitted As Inpatient Discharge Instructions Interventions: ED Discharge Assessment Last Done: 08/20/22 22:11
[2022-08-20] MEDS ORDERED: ALBUT/IPRATROP 3MG/0.5MG NEB 3 ML VIAL NEB STA (14:51)
[2022-08-20 15:35] LABS: iSTAT Creatinine 1.1 mg/dl (0.6-1.3); iSTAT Hemoglobin 14.6 g/dl (12.0-16.0); iSTAT Ionized Calcium 1.16 mmol/l (1.12-1.32); iSTAT Potassium 4.3 mmol/L (3.3-5.0)
[2022-08-20] MEDS ORDERED: OPTIRAY 320 500ml IV ONE (15:38)
[2022-08-20 15:40] LABS: Basophils # (auto) 0.08 K/uL (0-0.2); Basophils % (auto) 1.1 %; Eosinophils # (auto) 0.21 K/uL (0-0.50); Eosinophils % (auto) 2.9 %; Hematocrit (blood only) 44.2 % (37.0-47.0); Hemoglobin 14.9 g/dl (12.0-16.0); Immature Granulocytes # (auto) 0.04 K/uL (0.01-0.20); Immature Granulocytes % (auto) 0.5 %; Lymphocytes # (auto) 2.11 K/uL (1.2-3.4); Lymphocytes % (auto) 28.9 %; Mean Corpuscular Hemoglobin 28.8 pg (25.0-34.0); Mean Corpuscular Hgb Conc 33.7 g/dL (32.0-36.0); Mean Corpuscular Volume 85.5 fL (80.0-100.0); Mean Platelet Volume 10.6 fL (9.4-12.4); Monocytes # (auto) 0.53 K/uL (0.11-0.59); Monocytes % (auto) 7.3 %; Neutrophils # (auto) 4.32 K/uL (1.40-6.50); Neutrophils % (auto) 59.3 %; Platelet Count 315 K/uL (130-400); RDW Coefficient of Variation 14.1 % (11.5-14.5); RDW Standard Deviation 43.6 fL (36.4-46.3); Red Blood Count 5.17 M/uL (4.20-5.40); White Blood Count 7.29 K/ul (4.8-10.8)
--- NOTE | 2022-08-20 15:40 | XRay Report ---
XR chest 1V portable HISTORY: Shortness of breath. COMPARISON: Chest 05/05/2022. FINDINGS: Stable mild interstitial thickening within the lower lung zones. Otherwise, the lungs are c lear. No pleural effusions. No pneumothorax. The heart is normal in size. There are calcifications wi thin the aortic knob. IMPRESSION: No significant change compared to the prior study. No acute process. ACT 112: Negative or not required by law. Electronically signed by: Marlo Chan M.D. 08/20/2022 3:37 PM
[2022-08-20 15:59] LABS: Alanine Aminotransferase 22 U/L (7-52); Albumin Globulin Ratio 1.5 (0.9-2); Albumin Level 4.6 gm/dl (3.4-5.0); Alkaline Phosphatase 90 U/L (34-104); Anion Gap 17 (3-11); Aspartate Aminotransferase 23 U/L (13-39); BUN Creatinine Ratio 31.9 (10-20); Bilirubin,Total 0.3 mg/dl (0.2-1.0); Blood Urea Nitrogen 38 mg/dl (6-23); Calcium 10.5 mg/dl (8.5-10.1); Carbon Dioxide 23 mmol/L (21-32); Chloride 100 mmol/L (98-107); Est GFR (African American) 48.2 ml/min; Est GFR (Non-African American) 41.6 ml/min; Glucose 145 mg/dl (70-99(Fasting)); Potassium 4.4 mmol/L (3.5-5.1); Sodium 140 mmol/L (136-145); Total Protein 7.6 gm/dl (6.0-8.3)
--- NOTE | 2022-08-20 16:06 | CT Scan Report ---
CT ANGIOGRAPHY OF THE CHEST, PULMONARY EMBOLUS PROTOCOL CLINICAL HISTORY: Shortness of breath COMPARISON STUDY: Chest CT April 21, 2022. Chest radiograph performed earlier today. TECHNIQUE: Following IV administration of 115 mL of Optiray, helical axial images of the chest were o btained utilizing the pulmonary embolus protocol. Maximal intensity projections and sagittal and cor onal reformats were viewed on an independent 3D workstation. IV contrast was administered without co mplication. Automated exposure control was utilized for the study. A dose lowering technique was ut ilized adhering to the principles of ALARA. CT DOSE: 516.11 mGycm FINDINGS: No central or lobar pulmonary emboli are identified. The segmental and subsegmental pulmon fanta arteries are suboptimally assessed due to respiratory motion. There is no thoracic aortic dissect ion. Size of the heart is normal. No pericardial effusion is present. No large thoracic lymph nodes. There is no pneumothorax or pleural effusion. Lungs are suboptimally assessed due to respiratory santiago on. Mild groundglass opacities within lungs favor atelectasis. There is no consolidation to suggest p neumonia. No acute fractures within the bony thorax are noted. Visualized portions of the upper abdom en are unremarkable. IMPRESSION: 1. No central or lobar pulmonary emboli. Remainder of pulmonary arteries suboptimally assessed due to respiratory motion. 2. No consolidation to suggest pneumonia. Groundglass opacities which favor atelectasis. ACT 112: Negative or not required by law. Electronically signed by: George Jimenez M.D. 08/20/2022 4:04 PM
[2022-08-20 16:17] LABS: Partial Thromboplastin Ratio 0.9; Partial Thromboplastin Time 23.6 Seconds (21.0-31.0); Prothrombin Time 10.6 Seconds (9.0-12.0)
--- NOTE | 2022-08-20 16:24 | Electrocardiogram Report ---
Test Reason : Blood Pressure : / mmHG Vent. Rate : 089 BPM Atrial Rate : 089 BPM P-R Int : 162 ms QRS Dur : 072 ms QT Int : 380 ms P-R-T Axes : 070 037 069 degrees QTc Int : 462 ms Poor data quality, interpretation may be adversely affected Normal sinus rhythm Nonspecific ST and T wave abnormality Abnormal ECG When compared with ECG of 05-MAY-2022 10:42, No significant change was found Confirmed by Kwame Sierra ([id number]) on 08/20/2022 4:23:41 PM Referred By: Abner Vaz Confirmed By:Kwame Sierra
[2022-08-20 16:51] LABS: Troponin I High Sensitivity 58.5 pg/ml (0-14)
--- NOTE | 2022-08-20 17:38 | History & Physical Report ---
Date of Service August 20, 2022 Assessment & Plan (1) Acute dyspnea: Plan: Dyspnea on exertion, elevated troponin Without chest pain Previously with chronically elevated troponin suspected due to demand Dobutamine stress echo 2019 was normal Increased cardiac risk due to age, history of DM, hypertension - CTA: 1. No central or lobar pulmonary emboli. Remainder of pulmonary arteries suboptimally assessed due to respiratory motion. 2. No consolidation to suggest pneumonia. Groundglass opacities which favor atelectasis. Patient symptoms did transiently improve on prednisone previously. Patient is not wheezing, does not appear to be in an asthma/COPD exacerbation.? Post COVID dyspnea, will trend CRP Troponin trended overnight Echo pending No chest pain at bedside evaluation, no shortness of breath while at rest at bedside Hypercalcemia Very mild volume contraction. Total protein, albumin, globulin is normal. 80 cc/h Normosol for 1 L total supplemental fluid Trend calcium PTH RP, vitamin D pending Type II DM Hold home metformin, 70/30 insulin Weight-based basal bolus. 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 EKG on admission with no territorial ST segment changes, or acute T wave inversions and similar to prior. QTc 462. Calcium is elevated at 10.5 Post covid sob x2 months then improved. 1 week breathing worsened again. SoB on exertion, seems worse in last 24-48 hours. Intermittent dry throat cough with no recent change. No sputum production. No wheezing. Quickly becomes short of breath with exertion, but has not had any chest pressure/chest pain/palpitations with this. Was concerned that her A. fib could have been impacting her symptoms, but notes she is in a regular sinus rhythm while being here. No leg swelling. Muscles in legs feel tense bilaterally. Gets cramps easy. No other symptoms that she has noted. No fevers, chills, no abdominal pain, no N/V/D/C. Did try a prednisone burst for cramps in her legs from PCP. Did not help her legs, but did notice her breathing might have improved a little while on it No tobacco/alcohol use. Medical History: Reviewed Medications: Reviewed Surgical History: Reviewed Allergies: Reviewed Social History: No tobacco/alcohol. No recreational drug use Code Status: DNR/DNI Allergies Allergy/AdvReac Type Severity Reaction Status Date / Time Penicillins Allergy Severe HIVES Verified 08/20/22 16:35 aspirin Allergy Intermediate RASH Verified 08/20/22 16:35 Sulfa (Sulfonamide Allergy Intermediate RASH Verified 08/20/22 16:35 Antibiotics) Home Medications Medication Instructions Recorded Confirmed Type lorazepam 0.5 mg tablet (Ativan) 0.5 mg PO DAILY PRN anxiety #30 12/21/21 08/20/22 Rx tabs cyanocobalamin (vitamin B-12) 1,000 mcg PO DAILY 01/18/22 08/20/22 History 1,000 mcg tablet (Vitamin B-12) gemfibrozil 600 mg tablet (Lopid) 600 mg PO BID #180 tabs 04/22/22 08/20/22 Rx losartan 25 mg tablet 12.5 mg PO DAILY #90 tabs 04/22/22 08/20/22 Rx lovastatin 20 mg tablet 20 mg PO QPM #90 tabs 04/22/22 08/20/22 Rx metformin 1,000 mg tablet 1,000 mg PO BID #180 tabs 04/22/22 08/20/22 Rx albuterol sulfate 90 mcg/actuation 2 puffs inhalation 6XD PRN 05/05/22 08/20/22 Rx aerosol inhaler shortness of breath or wheezing #6.7 grams albuterol sulfate 2.5 mg/3 mL 2.5 mg (3 mL) inhalation Q4H PRN 06/09/22 08/20/22 Rx (0.083 %) solution for nebulization shortness of breath or wheezing #180 mL nebulizers #1 ea 06/09/22 08/20/22 Rx insulin aspar prot-insulin aspart See Rx Instructions .Route 07/22/22 08/20/22 Rx 100 unit/mL (70-30) subcutaneous .COMPLEX #30 mL pen (Novolog Mix 70-30FlexPen U-100) Past Med/Surg History Medical History Diabetes Diabetic neuropathy Dyslipidemia Leukocytosis Panic disorder SOB (shortness of breath) Tachypnea Surgical History History of cholecystectomy Family History Daughter Breast cancer Son Marfan syndrome Family/Other Marfan syndrome Sister Pancreatic cancer Mother COPD (chronic obstructive pulmonary disease) Father COPD (chronic obstructive pulmonary disease) Brother COPD (chronic obstructive pulmonary disease) Denies family history of Ovarian cancer Prostate cancer Myocardial infarction Colorectal cancer Social History Smoking Status: Never smoker Second Hand Exposure: No; Hx Alcohol Use: No Hx Substance Use: No Preferred Language: Wolof Communication Ability: Effective Visual Impairment: No Limitations Hearing Ability: Normal Employee Communications Specialist Required: No Beliefs That Will Affect Care: None marital status: / Current Living Situation: Alone current occupational status: retired How many Children do You have: 3 Feels Safe at Home: Yes Childhood Exposure to Second-Hand Smoke: Yes caffeine: No Dental Care, Regularly: Yes Physical Activity Frequency: Daily Seatbelt Use: always Sunscreen Use: Yes Assistive Devices: Cane Review of Systems Review of Systems: All systems reviewed & are unremarkable except as noted in HPI & below Physical Exam Physical Exam: General: A&Ox3. NAD. Cooperative. HEENT: Atraumatic, normocephalic. Pulm: Diminished buyt grossly CTAB A&P. -wheezes, -rales, -rhonchi. Symmetrical chest rise. No increased work of breathing. No respiratory distress. Cardiac: RRR, +soft sm. Radial pulses intact and symmetrical. Abdominal: Nontender, nondistended, soft. BS present. Ext: Warm, dry. Mild bilateral LE neuropathy but sensation is intact to soft touch. Cap refill brisk. Moves upper and lower extremities equally Results & Data Results & Data ([facility]) Vital Signs (Past 12 Hours) Vital Signs Temp Pulse Pulse Resp BP BP BP 08/20/22 15:44 81 24 156/84 H 08/20/22 15:44 08/20/22 15:02 87 27 H 137/79 08/20/22 13:30 36.8 C 110 H 18 157/89 H Pulse Ox O2 Del Method 08/20/22 15:44 99 Room Air 08/20/22 15:44 98 Room Air 08/20/22 15:02 99 Nebulizer 08/20/22 13:30 98 Room Air PG Care Time/CCT Total # of Minutes Spent Total Time Spent with Patient: Total time spent is greater than 50% in coordination of care (as documented) at patient's floor/unit and/or counseling patient: Coding Level of Care Code 55921 INT INP/OBS CARE 2/55MIN Diagnoses Acute dyspnea R06.00 Elevated troponin I level R77.8 Diabetic neuropathy E11.40 Dyslipidemia E78.5 Panic disorder F41.0
[2022-08-20] MEDS ORDERED: GLUCAGON FOR INJ 1 MG VIAL SQ PRN (17:55)
[2022-08-20] MEDS ORDERED: DEXTROSE 50% 50 ML SYRINGE IV PRN (17:55)
[2022-08-20] MEDS ORDERED: GLUCOSE 10 TAB/TUBE PO PRN (17:55)
[2022-08-20] MEDS ORDERED: CARBOHYDRATES FOR HYPOGLYCEMIA PO PRN (17:55)
[2022-08-20] MEDS ORDERED: GLUCOSE 40% GEL 15 GM TUBE PO PRN (17:55)
[2022-08-20] MEDS ORDERED: NORMOSOL-R 1,000 ML IV SCH (18:00)
[2022-08-20] MEDS: INSULIN ASPART PER UNIT SC SCH (21:10)
[2022-08-20] MEDS: LANTUS PER UNIT CHARGE SQ SCH (21:10)
[2022-08-20] MEDS: LOVASTATIN 20 MG TAB PO SCH (23:44)
[2022-08-20] MEDS: LORazepam 0.5 MG TAB PO PRN (23:44)
--- NOTE | 2022-08-21 07:38 | Hospitalist Progress Note ---
Date of Service August 21, 2022 Assessment & Plan (1) Acute dyspnea: Plan: Dyspnea on exertion, elevated troponin acute unstable moderate risk Without chest pain Previously with chronically elevated troponin suspected due to demand ischemia Dobutamine stress echo 2019 was normal moderate risk , cardiac risk due to age, history of DM, hypertension - CTA: ruled out PE or pneumonia or structural anatomic changes in chest Echo given normal resting echo patient may benefit from stress test to see if her dyspnea is ischemic related however it would be unclear whether she would progress towards cardiac catheterization if positive but it would give us an answer for her dyspnea. Hypercalcemia acute repeat calcium normalized Augment subtherapeutic vitamin D PTH RP, Type II DM, chronic stable however need to monitor as medication changes Hold home metformin, 70/30 insulin Weight-based basal bolus. 8 units long-acting twice daily, CF 50, ratio 7 Goal BSG [id number] Panic disorder chronic stable Continue nightly lorazepam Hypertension Continue losartan DVT prophylaxis: Lovenox CODE STATUS: DNR/DNI Diet: DM (2) Elevated troponin I level: (3) Diabetic neuropathy: (4) Dyslipidemia: (5) Panic disorder: Admission and Anticipated Discharge Date Admission Date: August 20, 2022 Subjective pt is very dyspneic on exertion, just walking back from the bathroom, had covid 05/08, does have some ground glass changes on CTA but no PE, resting echo is normal is also noted to be vitamin d deficient Physical Exam Physical Exam: Patient is dyspneic after returning from the bathroom. Her ca rdiac exam is regular without murmurs clicks rubs or gallops her lungs have basilar crackles with clear with deep inspiration otherwise has good air movement no focal loss or wheeze extremities are without edema Results & Data Results & Data ([facility]) Vital Signs (Past 12 Hours) Vital Signs Temp Pulse Pulse Resp BP BP Pulse Ox 08/21/22 07:16 80 08/21/22 03:00 97.7 F 81 20 133/81 97 08/20/22 23:30 86 08/20/22 22:46 08/20/22 22:46 97.7 F 79 18 145/85 H 94 08/20/22 21:30 97 H 25 H 93 08/20/22 21:00 79 16 92 08/20/22 20:30 80 27 H 96 08/20/22 20:30 142/76 H 08/20/22 20:00 79 18 92 08/20/22 20:00 142/77 H O2 Del Method O2 Flow Rate 08/21/22 07:16 08/21/22 03:00 Nasal Cannula 2 08/20/22 23:30 08/20/22 22:46 Room Air 08/20/22 22:46 Room Air 08/20/22 21:30 08/20/22 21:00 08/20/22 20:30 08/20/22 20:30 08/20/22 20:00 08/20/22 20:00 Laboratory Results Reviewed CBC Reviewed chemistry Reviewed trended troponin Reviewed vitamin D which is below normal PG Care Time/CCT Total # of Minutes Spent Total Time Spent with Patient: Total time spent is greater than 50% in coordination of care (as documented) at patient's floor/unit and/or counseling patient: Coding Level of Care Code 01583 SUB INP/OBS CARE 3/50MIN Diagnoses Acute dyspnea R06.00 Elevated troponin I level R77.8 Diabetic neuropathy E11.40 Dyslipidemia E78.5 Panic disorder F41.0
[2022-08-21 07:39] LABS: Basophils # (auto) 0.06 K/uL (0-0.2); Eosinophils # (auto) 0.26 K/uL (0-0.50); Eosinophils % (auto) 4.5 %; Hematocrit (blood only) 40.9 % (37.0-47.0); Hemoglobin 13.4 g/dl (12.0-16.0); Immature Granulocytes # (auto) 0.02 K/uL (0.01-0.20); Immature Granulocytes % (auto) 0.3 %; Lymphocytes # (auto) 1.95 K/uL (1.2-3.4); Lymphocytes % (auto) 34.1 %; Mean Corpuscular Hemoglobin 28.5 pg (25.0-34.0); Mean Corpuscular Hgb Conc 32.8 g/dL (32.0-36.0); Mean Platelet Volume 10.4 fL (9.4-12.4); Monocytes # (auto) 0.48 K/uL (0.11-0.59); Monocytes % (auto) 8.4 %; Neutrophils # (auto) 2.95 K/uL (1.40-6.50); Neutrophils % (auto) 51.7 %; Platelet Count 277 K/uL (130-400); RDW Coefficient of Variation 14.3 % (11.5-14.5); RDW Standard Deviation 45.4 fL (36.4-46.3); White Blood Count 5.72 K/ul (4.8-10.8)
[2022-08-21] MEDS: ENOXAPARIN INJ 40 MG/0.4 ML SYR SQ SCH (07:48)
[2022-08-21] MEDS: LOSARTAN POTASSIUM 25 MG TAB PO SCH (07:48)
[2022-08-21 08:03] LABS: Anion Gap 10 (3-11); BUN Creatinine Ratio 36.4 (10-20); Blood Urea Nitrogen 36 mg/dl (6-23); C Reactive Protein < 0.50 mg/dl (0-0.5); Calcium 9.7 mg/dl (8.5-10.1); Carbon Dioxide 27 mmol/L (21-32); Chloride 104 mmol/L (98-107); Creatinine Clr Calc Pharmacy 45.1 ml/min; Est GFR (African American) 60.2 ml/min; Glucose 168 mg/dl (70-99(Fasting)); Potassium 4.3 mmol/L (3.5-5.1); Sodium 141 mmol/L (136-145)
[2022-08-21 08:22] LABS: Troponin I High Sensitivity 60.4 pg/ml (0-14)
[2022-08-21] MEDS: INSULIN ASPART PER UNIT SC SCH ×4 (09:27→21:20)
[2022-08-21] MEDS: LANTUS PER UNIT CHARGE SQ SCH ×2 (09:28→21:21)
--- NOTE | 2022-08-21 12:51 | XCELERA ---
[id number]
[2022-08-21] MEDS: LOVASTATIN 20 MG TAB PO SCH (21:17)
[2022-08-21] MEDS: LORazepam 0.5 MG TAB PO PRN (21:17)
[2022-08-22] MEDS: ENOXAPARIN INJ 40 MG/0.4 ML SYR SQ SCH (07:35)
[2022-08-22] MEDS: LOSARTAN POTASSIUM 25 MG TAB PO SCH (07:35)
[2022-08-22] MEDS: CHOLECALCIFEROL 5,000 UNITS 125 MCG TAB PO SCH (07:35)
--- NOTE | 2022-08-22 08:13 | Hospitalist Progress Note ---
Date of Service August 22, 2022 Assessment & Plan (1) Acute dyspnea: Plan: Dyspnea on exertion, elevated troponin acute unstable moderate risk Without chest pain Previously with chronically elevated troponin suspected due to demand ischemia, resting echo without RWMA Dobutamine stress echo 2019 was normal, that was done due to chest pain and being unable to tolerate treadmill moderate risk , cardiac risk due to age, history of DM, hypertension, will have dobutamine stress ehco 08/23/22 to see if ANNA is anginal equivalent, if negative will confirm pulmonary source - CTA: ruled out PE or pneumonia or structural anatomic changes in chest, ground glass could be start of post covid fibrotic change, try steroids, 08/22/22, if improved will cancel stress, if stress negative will have outpt pulmonary evaluation Hypercalcemia acute repeat calcium normalized Augment subtherapeutic vitamin D PTH RP, Type II DM, chronic stable however need to monitor as medication changes Hold home metformin, 70/30 insulin Weight-based basal bolus. 8 units long-acting twice daily, CF 50, ratio 7 Goal BSG [id number] Panic disorder chronic stable Continue nightly lorazepam given anxiety maybe issue will order buspar 5mg tid starting 08/22/22 Hypertension Continue losartan DVT prophylaxis: Lovenox CODE STATUS: DNR/DNI Diet: DM (2) Elevated troponin I level: (3) Diabetic neuropathy: (4) Dyslipidemia: (5) Panic disorder: Admission and Anticipated Discharge Date Admission Date: August 20, 2022 Subjective pt remains dyspneic on exertion, just walking around room, had covid 05/08, does have some ground glass changes on CTA but no PE, resting echo is normal is also noted to be vitamin d deficient Physical Exam Physical Exam: Patient is dyspneic seaking to [place]. Her cardiac exam is regular without murmurs clicks rubs or gallops her lungs have basilar crackles with clear with deep inspiration otherwise has good air movement no focal loss or wheeze extremities are without edema Results & Data Results & Data ([facility]) Vital Signs (Past 12 Hours) Vital Signs Temp Pulse Pulse Pulse Resp BP BP 08/22/22 07:37 97.5 F L 81 18 125/74 08/22/22 07:15 98 H 08/22/22 07:00 98.2 F 58 L 18 136/77 08/22/22 06:57 98.2 F 95 H 20 129/76 08/22/22 04:11 08/22/22 03:00 98.2 F 92 H 20 150/69 H 08/21/22 23:29 84 08/21/22 22:59 08/21/22 22:46 85 08/21/22 22:00 97.9 F 101 H 20 131/68 Pulse Ox O2 Del Method O2 Flow Rate 08/22/22 07:37 90 Room Air 08/22/22 07:15 08/22/22 07:00 96 Room Air 08/22/22 06:57 94 Room Air 08/22/22 04:11 94 Room Air 08/22/22 03:00 93 Room Air 08/21/22 23:29 08/21/22 22:59 Room Air 08/21/22 22:46 08/21/22 22:00 92 Nasal Cannula 2 PG Care Time/CCT Total # of Minutes Spent Total Time Spent with Patient: Total time spent is greater than 50% in coordination of care (as documented) at patient's floor/unit and/or counseling patient: Coding Level of Care Code 68283 SUB INP/OBS CARE 2/35MIN Diagnoses Acute dyspnea R06.00 Elevated troponin I level R77.8 Diabetic neuropathy E11.40 Dyslipidemia E78.5 Panic disorder F41.0
[2022-08-22] MEDS: LANTUS PER UNIT CHARGE SQ SCH ×2 (08:26→21:06)
[2022-08-22] MEDS: INSULIN ASPART PER UNIT SC SCH ×4 (08:26→21:06)
[2022-08-22] MEDS ORDERED: methylPREDNISolone 40 MG in SYRINGE 0 ML IV ONE (11:30)
[2022-08-22] MEDS: busPIRone 5 MG TAB PO SCH ×2 (12:49→21:01)
[2022-08-22] MEDS: LOVASTATIN 20 MG TAB PO SCH (21:01)
[2022-08-22] MEDS: FAMOTIDINE 20 MG TAB PO SCH (21:01)
[2022-08-22] MEDS: LORazepam 0.5 MG TAB PO PRN (23:29)
[2022-08-23] MEDS: ENOXAPARIN INJ 40 MG/0.4 ML SYR SQ SCH (08:29)
[2022-08-23] MEDS: FAMOTIDINE 20 MG TAB PO SCH (08:30)
[2022-08-23] MEDS: LOSARTAN POTASSIUM 25 MG TAB PO SCH (08:30)
[2022-08-23] MEDS: CHOLECALCIFEROL 5,000 UNITS 125 MCG TAB PO SCH (08:30)
[2022-08-23] MEDS: busPIRone 5 MG TAB PO SCH ×2 (08:31→15:22)
[2022-08-23] MEDS: INSULIN ASPART PER UNIT SC SCH ×2 (08:37→12:02)
[2022-08-23] MEDS: LANTUS PER UNIT CHARGE SQ SCH (08:37)
[2022-08-23] MEDS ORDERED: predniSONE 20 MG TAB PO SCH (09:00)
[2022-08-23] MEDS ORDERED: METOPROLOL TARTRATE 1 MG/ML VIAL IV ONE (09:14)
[2022-08-23] MEDS ORDERED: DOBUTamine HCL 12.5 MG/ML 20 ML VIAL IV ONE (09:14)
[2022-08-23] MEDS ORDERED: ATROPINE SULFATE 0.1 MG/ML 10ML SYR IV ONE (09:14)
[2022-08-23] MEDS ORDERED: NITROGLYCERIN SL 0.4 MG/TAB TAB ONE (09:15)
[2022-08-23] MEDS ORDERED: LANTUS PER UNIT CHARGE SQ ONE (09:19)
--- NOTE | 2022-08-23 10:26 | XCELERA ---
[id number]
--- NOTE | 2022-08-23 12:23 | Discharge Summary ---
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 EKG on admission with no territorial ST segment changes, or acute T wave inversions and similar to prior. QTc 462. Calcium is elevated at 10.5 Post covid sob x2 months then improved. 1 week breathing worsened again. SoB on exertion, seems worse in last 24-48 hours. Intermittent dry throat cough with no recent change. No sputum production. No wheezing. Quickly becomes short of breath with exertion, but has not had any chest pressure/chest pain/palpitations with this. Was concerned that her A. fib could have been impacting her symptoms, but notes she is in a regular sinus rhythm while being here. No leg swelling. Muscles in legs feel tense bilaterally. Gets cramps easy. No other symptoms that she has noted. No fevers, chills, no abdominal pain, no N/V/D/C. Did try a prednisone burst for cramps in her legs from PCP. Did not help her legs, but did notice her breathing might have improved a little while on it No tobacco/alcohol use. Medical History: Reviewed Medications: Reviewed Surgical History: Reviewed Allergies: Reviewed Social History: No tobacco/alcohol. No recreational drug use Code Status: DNR/DNI Principal Diagnosis Dyspnea with negative stress test suspect secondary to previous COVID perhaps with chronic inflammatory lung changes Discharge Exam Lung exam is with basilar crackles are clear with inspiration no wheezing or other crackles otherwise heard. Heart exam is regular without murmurs Extremities without edema Discharge Data Allergies Allergy/AdvReac Type Severity Reaction Status Date / Time Penicillins Allergy Severe HIVES Verified 08/20/22 16:35 aspirin Allergy Intermediate RASH Verified 08/20/22 16:35 Sulfa (Sulfonamide Allergy Intermediate RASH Verified 08/20/22 16:35 Antibiotics) Consultations 08/20/22 17:17 ED Decision to Admit Stat Ordered Studies 08/20/22 14:53 CT angio chest PE protocol Stat Hospital Course (1) Acute dyspnea: Dyspnea on exertion, elevated troponin patient had dobutamine stress test on 08/23/2022 without evidence of ischemia I stress this is negative consider pulmonary source for shortness of breath. - CTA: ruled out PE or pneumonia or structural anatomic changes in chest, ground glass could be start of post covid fibrotic change, Patient with subjective improvement on steroids we will continue steroid taper dose at home have follow-up with pulmonary medicine as an outpatient. Hypercalcemia acute repeat calcium normalized Augment subtherapeutic vitamin D PTH RP, pending at time of discharge Type II DM, resume home metformin, 70/30 insulin Panic disorder chronic stable Continue nightly lorazepam Discussed BuSpar with outpatient physician Hypertension Continue losartan CODE STATUS: DNR/DNI (2) Elevated troponin I level: (3) Diabetic neuropathy: (4) Dyslipidemia: (5) Panic disorder: Total Time Total Time Spent Total Time Spent (In Minutes): It required greater than 30 minutes to prepare this patient for discharge Discharge Plan Discharge Items Patient Disposition: Home - Self-Care Reason For Visit: ELEVATED TROP, EXERTIONAL DYSPNEA Discharge Diagnosis: Dyspnea secondary to inflammation of the lung Activity: Resume your previous activity Non-emergency contact: Primary Care Provider Call non-emergency contact if: your symptoms worsen Follow-up/Referrals: Abner Vaz, [Primary Care Provider] - 08/30/22 12:00 pm Diet: Regular Addtl Attending Provider Instructions: Please schedule follow-up with your primary care provider and an additional follow-up with pulmonary medicine for future appointment. Please take a tapering dose of your prednisone. While you are on the prednisone we will recommend you take an additional low-dose of Pepcid to prevent any stomach irritation While you are in the hospital we did have a short trial of BuSpar to help with anxiety. If you feel this had a greater effect you may consider discussing this with Dr. Vaz your family doctor about ongoing prescription Your vitamin D level was found to be low while you are inpatient. It would be recommended you get [id number] vitamin D taking 5000 international units daily. Pending Studies at Discharge: Yes Studies:: Parathyroid hormone related peptide is pending Stand-Alone Forms: [employer], Smoking Cessation Medications and DC Order Prescriptions: New famotidine 20 mg Tablet 20 mg PO PM Qty: 30 0RF prednisone 10 mg tablet 10 mg PO DIRECTED Qty: 40 0RF Rx Instructions: 4 a day x 4 d>3 a day x 4 d>2 a day x 4 d>1 a day cholecalciferol (vitamin D3) 125 mcg (5,000 unit) Tablet 5,000 unit PO QAM Qty: 90 0RF Continued insulin asp prt-insulin aspart [Novolog Mix 70-30FlexPen U-100] 100 unit/mL (70-30) insulin pen See Rx Instructions .ROUTE .COMPLEX Qty: 30 11RF Rx Instructions: TAKES 55 units in the AM; 45 units at supper lorazepam [Ativan] 0.5 mg tablet 0.5 mg PO DAILY PRN (Reason: anxiety) Qty: 30 0RF metformin 1,000 mg tablet 1,000 mg PO BID Qty: 180 3RF gemfibrozil [Lopid] 600 mg tablet 600 mg PO BID Qty: 180 3RF losartan 25 mg tablet 12.5 mg PO DAILY Qty: 90 3RF lovastatin 20 mg tablet 20 mg PO QPM Qty: 90 3RF albuterol sulfate 2.5 mg /3 mL (0.083 %) solution for nebulization 2.5 mg inhalation Q4H PRN (Reason: shortness of breath or wheezing) Qty: 180 5RF cyanocobalamin (vitamin B-12) [Vitamin B-12] 1,000 mcg Tablet 1,000 mcg PO DAILY albuterol sulfate 90 mcg/actuation HFA aerosol inhaler 2 puffs INH 6XD PRN (Reason: shortness of breath or wheezing) Qty: 6.7 0RF No Action (DME) nebulizers Misc See Rx Instructions .Route Qty: 1 0RF Rx Instructions: As directed Discharge Orders: Discharge Order (Routine); Ordered 08/23/22 Ordered By: Chilango Domingo Admission Data Admit Date/Time: 08/22/22 10:55 Attending Provider: Chilango Domingo Admit Provider: Jaylon Cooper Primary Care Provider: Abner Vaz Other Providers: Jaylon Cooper Coding Level of Care Code HOSP INP/OBS DISCH >30 MIN Diagnoses Acute dyspnea R06.00 Elevated troponin I level R77.8 Diabetic neuropathy E11.40 Dyslipidemia E78.5 Panic disorder F41.0
[2022-08-23] MEDS ORDERED: LANTUS PER UNIT CHARGE SQ SCH (21:00)
== END 2022-08-23 15:58 | disposition home or self-care (01) | DRG 204 ==
LOC: ED 13:28 → 2N 13:28 → SUATTDRO 17:38 → 2N 22:11